=== PATIENT | male | born 1980 | race Caucasian/White ===

== ENCOUNTER 2019-08-25 11:30 | Inpatient (IN) | payer SELFPAY ==
[2019-08-25 13:26] LABS: Basophils % 0.3 % (0-1.3)
[2019-08-25] MEDS ORDERED: NA CHLORIDE 0.9% 1,000 ML ONE ×3 (13:26→18:56)
[2019-08-25] MEDS ORDERED: ONDANSETRON 4 MG/2 ML VIAL ONE ×2 (13:26→19:08)
[2019-08-25] MEDS ORDERED: MORPHINE 4 MG/ML SYR ONE ×3 (13:26→15:00)
[2019-08-25 13:31] LABS: Hematocrit 46.6 % (39.6-49.0); Lymphocytes % 6.3 % (15.3-44.8); MPV 9.8 fL (7.6-11.3); RBC Red Blood Cell Count 5.02 M/uL (4.33-5.43)
[2019-08-25 13:42] LABS: ALT/SGPT 23 U/L (12-78); AST/SGOT 16 U/L (15-37); Albumin 3.5 g/dL (3.4-5.0); Alkaline Phosphatase 81 U/L (45-117); BUN Blood Urea Nitrogen 13 mg/dL (7-18); Bicarbonate 25 mmol/L (21-32); Bilirubin Direct 0.1 mg/dL (0-0.2); Bilirubin Total 0.5 mg/dL (0.2-1.0); Glucose Level 191 mg/dL (74-106); Lipase 68 U/L (73-393); Sodium Level 141 mmol/L (136-145)
--- NOTE | 2019-08-25 14:20 | RAD REPORT ---
EXAM DESCRIPTION: CT - Abdomen Pelvis W Contrast - 08/25/2019 1:49 pm CLINICAL HISTORY: Abdominal pain COMPARISON: none. TECHNIQUE: Computed axial tomography of the abdomen pelvis was obtained. 100 cc Isovue-300 was admin istered intravenously. Oral contrast was not requested which limits evaluation of bowel. All CT scans are performed using dose optimization technique as appropriate and may include automated exposure control or mA/KV adjustment according to patient size. FINDINGS: The liver, spleen, pancreas, adrenal and kidneys appear unremarkable. Diverticula stem from the colon. There is moderate stranding adjacent to the sigmoid colon. In additi on there is an extraluminal air bubble. The appendix is thickened. Small amount of ill-defined fluid surrounds the appendix. A loop of small bowel is thickened within the anterior upper pelvis near midline. Several extralumina l air bubbles are present Left hydrocele IMPRESSION: There are several abnormal findings. The appendix is thickened with small amount of surrounding ill-defined fluid presumably appendicitis Sigmoid diverticulosis. Moderate stranding within the adjacent fat and an extraluminal air bubble lik pilar indicate diverticulitis with a micro perforation Thickening of the wall of a loop of small bowel within the anterior upper pelvis with a couple of adj acent extraluminal air bubbles indicate inflammation. The air bubbles may be the sequela of the suspe cted sigmoid micro perforation. Another consideration is that the microperforation is secondary to th e inflamed small bowel loop
[2019-08-25] MEDS ORDERED: PIPER/TAZO/NS 3.375gm 3.375 GM/100 ML BAG ONE (14:48)
--- NOTE | 2019-08-25 14:49 | ER ---
Nurse's Notes [facility] Name: Ravi Quintero Age: 39 yrs Sex: Male : 1980 Arrival Date: 08/25/2019 Time: 11:31 Bed 3 Private MD: Diagnosis: Elevated white blood cell count;Generalized abdominal pain Presentation: 08/24 11:37 Chief complaint: Patient states: umbilical pain that started today while on the toilet. sv Reports that he had 2 BMs today. Denies n/v. Coronavirus screen: Proceed with normal triage. Patient denies a cough. Patient reports shortness of breath or difficulty breathing. Patient denies measured and/or subjective temperature greater than 100.4F prior to today's visit. Patient denies travel on a cruise ship or to a country the [facility] currently lists as an affected area. Patient denies contact with known and/or suspected case of COVID-19. Ebola Screen: No symptoms or risks identified at this time. Risk Assessment: Do you want to hurt yourself or someone else? Patient reports no desire to harm self or others. Onset of symptoms was August 25, 2019. 11:37 Method Of Arrival: Wheelchair 11:37 Acuity: STACIE 3 sv 11:39 Initial Sepsis Screen: Does the patient meet any 2 criteria? RR > 20 per min. No. sv Patient's initial sepsis screen is negative. Does the patient have a suspected source of infection? Yes: Acute abdominal pain. Triage Assessment: 11:39 General: Appears in no apparent distress. uncomfortable, Behavior is cooperative, sv appropriate for age, restless. Pain: Complains of pain in umbilical area. Neuro: Level of Consciousness is awake, alert, obeys commands, Oriented to person, place, time, situation, Moves all extremities. Full function. Respiratory: Respiratory effort is even, unlabored. GI:. Historical: - Allergies: 11:38 No Known Allergies; sv - PMHx: 11:38 None; sv - PSHx: 11:38 None; sv - Immunization history:: Adult Immunizations up to date. - Social history:: Smoking status: Patient reports the use of cigarette tobacco products, smokes one pack cigarettes per day. Screenin:10 Abuse screen: Denies threats or abuse. Nutritional screening: No deficits noted. em Tuberculosis screening: No symptoms or risk factors identified. Fall Risk None identified. Assessment: 14:45 Reassessment: reports pain is a 6/10, restless and moaning, provider notified, received em new pain medication orders. Vital Signs: 11:39 BP 109 / 73; Pulse 68; Resp 22; Temp 97; Pulse Ox 100% ; Weight 113.4 kg; Height 6 ft. sv 0 in. (182.88 cm); 14:00 BP 150 / 103; Pulse 91; Resp 18; Pulse Ox 100% on R/A; Pain 8/10; em 11:39 Body Mass Index 33.91 (113.40 kg, 182.88 cm) sv ED Course: 11:31 Patient arrived in ED. ag5 11:38 Triage completed. sv 11:38 Arm band placed on. sv 13:03 Terrance Scott, RN is Primary Nurse. em 13:03 Ladan Gray FNP-C is PHCP. kb 13:03 Avelino Taylor MD is Attending Physician. kb 13:10 Patient has correct armband on for positive identification. Placed in gown. Bed in low em position. Call light in reach. Pulse ox on. NIBP on. 13:10 Initial lab(s) drawn, by me, sent to lab. Inserted saline lock: 20 gauge in right em antecubital area, using aseptic technique. Blood collected. 13:49 CT Abd/Pelvis - IV Contrast Only In Process Unspecified. EDMS 14:48 Ed Ambrocio MD is Hospitalizing Provider. kb 15:06 No provider procedures requiring assistance completed. Patient admitted, IV remains in em place. Administered Medications: 13:20 Drug: Zofran (Ondansetron) 4 mg Route: IVP; Site: right antecubital; em 14:00 Follow up: Response: No adverse reaction em 13:20 Drug: NS 0.9% 1000 ml Route: IV; Rate: 1000 ml; Site: right antecubital; em 15:01 Follow up: IV Status: Infusion continued upon admission em 13:22 Drug: morphine 4 mg Route: IVP; Site: right antecubital; em 14:10 Drug: morphine 4 mg Route: IVP; Site: left antecubital; em 14:50 Drug: Zosyn 3.375 grams Route: IVPB; Infused Over: 60 mins; Site: left antecubital; em 15:09 Follow up: IV Status: Infusion continued upon admission em 14:50 Drug: NS 0.9% 1000 ml Route: IV; Rate: 125 ml/hr; Site: left antecubital; em 15:09 Follow up: IV Status: Infusion continued upon admission em 14:55 Drug: morphine 4 mg Route: IVP; Site: right antecubital; em Outcome: 14:48 Decision to Hospitalize by Provider. kb 15:06 Admitted to OR accompanied by nurse, via wheelchair, with chart, Report called to Yoan 15:06 Condition: good 15:06 Instructed on the need for admit, Demonstrated understanding of instructions. 15:10 Patient left the ED. em Signatures: Dispatcher [employer] Ladan Allen, Shelby Bermudez, RN Terrance Gould RN RN Paxton Packer ag5
--- NOTE | 2019-08-25 14:49 | EDPHYS ---
Physician Documentation [facility] Name: Ravi Quintero Age: 39 yrs Sex: Male : 1980 Arrival Date: 08/25/2019 Time: 11:31 Bed 3 Private MD: ED Physician Avelino Taylor HPI: 08/24 14:33 This 39 yrs old Male presents to ER via Wheelchair with complaints of kb Abdominal Pain. 14:33 The patient presents with abdominal pain that is diffuse. Onset: The symptoms/episode kb began/occurred this morning, at 09:40. The symptoms do not radiate. Associated signs and symptoms: none. 14:34 The symptoms are described as constant, sharp. Modifying factors: The symptoms are kb alleviated by nothing, the symptoms are aggravated by pressure. Severity of pain: At its worst the pain was severe in the emergency department the pain is unchanged. The patient has not experienced similar symptoms in the past. The patient has not recently seen a physician. Pt reports he was having a BM at 0940 and had sudden, severe, diffuse abd pain. Denies n/v/d, fever, chills. . Historical: - Allergies: 11:38 No Known Allergies; sv - PMHx: 11:38 None; sv - PSHx: 11:38 None; sv - Immunization history:: Adult Immunizations up to date. - Social history:: Smoking status: Patient reports the use of cigarette tobacco products, smokes one pack cigarettes per day. ROS: 14:54 Constitutional: Negative for fever, chills, and weight loss, Cardiovascular: Negative kb for chest pain, palpitations, and edema, Respiratory: Negative for shortness of breath, cough, wheezing, and pleuritic chest pain, Back: Negative for injury and pain, : Negative for injury, bleeding, discharge, and swelling, MS/Extremity: Negative for injury and deformity, Skin: Negative for injury, rash, and discoloration, Neuro: Negative for headache, weakness, numbness, tingling, and seizure. 14:54 Abdomen/GI: Positive for abdominal pain, Negative for nausea, vomiting, and diarrhea. Exam: 14:54 Chest/axilla: Normal chest wall appearance and motion. Nontender with no deformity. kb No lesions are appreciated. Cardiovascular: Regular rate and rhythm with a normal S1 and S2. No gallops, murmurs, or rubs. Normal PMI, no JVD. No pulse deficits. Respiratory: Lungs have equal breath sounds bilaterally, clear to auscultation and percussion. No rales, rhonchi or wheezes noted. No increased work of breathing, no retractions or nasal flaring. Back: No spinal tenderness. No costovertebral tenderness. Full range of motion. Skin: Warm, dry with normal turgor. Normal color with no rashes, no lesions, and no evidence of cellulitis. MS/ Extremity: Pulses equal, no cyanosis. Neurovascular intact. Full, normal range of motion. Neuro: Awake and alert, GCS 15, oriented to person, place, time, and situation. Cranial nerves II-XII grossly intact. Motor strength 5/5 in all extremities. Sensory grossly intact. Cerebellar exam normal. Normal gait. 14:54 Constitutional: The patient appears alert, awake, in obvious pain. 14:54 Abdomen/GI: Inspection: abdomen appears normal, Bowel sounds: normal, in all quadrants, Palpation: severe abdominal tenderness, in all quadrants, rigid abd. Vital Signs: 11:39 BP 109 / 73; Pulse 68; Resp 22; Temp 97; Pulse Ox 100% ; Weight 113.4 kg; Height 6 ft. sv 0 in. (182.88 cm); 14:00 BP 150 / 103; Pulse 91; Resp 18; Pulse Ox 100% on R/A; Pain 8/10; em 11:39 Body Mass Index 33.91 (113.40 kg, 182.88 cm) sv MDM: 13:04 Patient medically screened. kb 14:32 Data reviewed: vital signs, nurses notes. Data interpreted: Pulse oximetry: on room air kb is 100 %. Interpretation: normal. 14:42 Counseling: I had a detailed discussion with the patient and/or guardian regarding: the kb historical points, exam findings, and any diagnostic results supporting the discharge/admit diagnosis, lab results, radiology results, the need for further work-up and treatment in the hospital. Physician consultation: Ed Ambrocio MD was contacted at 14:42, regarding admission, to the medical/surgical unit. patient's condition, and will see patient in OR. 08/24 13:05 Order name: Basic Metabolic Panel; Complete Time: 13:44 kb 08/24 13:05 Order name: CBC with Diff; Complete Time: 15:00 kb 08/24 13:05 Order name: Hepatic Function; Complete Time: 13:44 kb 08/24 13:05 Order name: Lipase; Complete Time: 13:44 kb 08/24 13:36 Order name: Manual Differential; Complete Time: 15:00 EDMS 08/24 13:59 Order name: Lactate kb 08/24 13:14 Order name: CT Abd/Pelvis - IV Contrast Only; Complete Time: 14:21 kb 08/24 14:13 Order name: CREATININE WHOLE BLOOD; Complete Time: 14:14 EDMS 08/24 14:28 Order name: Blood Culture Adult (2) kb 08/24 14:28 Order name: Procalcitonin kb 08/24 13:05 Order name: IV Saline Lock; Complete Time: 13:13 kb 08/24 13:05 Order name: Labs collected and sent; Complete Time: 13:12 kb 08/24 14:28 Order name: NPO; Complete Time: 15:01 kb Administered Medications: 13:20 Drug: Zofran (Ondansetron) 4 mg Route: IVP; Site: right antecubital; em 14:00 Follow up: Response: No adverse reaction em 13:20 Drug: NS 0.9% 1000 ml Route: IV; Rate: 1000 ml; Site: right antecubital; em 15:01 Follow up: IV Status: Infusion continued upon admission em 13:22 Drug: morphine 4 mg Route: IVP; Site: right antecubital; em 14:10 Drug: morphine 4 mg Route: IVP; Site: left antecubital; em 14:50 Drug: Zosyn 3.375 grams Route: IVPB; Infused Over: 60 mins; Site: left antecubital; em 15:09 Follow up: IV Status: Infusion continued upon admission em 14:50 Drug: NS 0.9% 1000 ml Route: IV; Rate: 125 ml/hr; Site: left antecubital; em 15:09 Follow up: IV Status: Infusion continued upon admission em 14:55 Drug: morphine 4 mg Route: IVP; Site: right antecubital; em Disposition: 08/25/19 14:48 Hospitalization ordered by Ed Ambrocio for Inpatient Admission. Preliminary diagnosis are Elevated white blood cell count, Generalized abdominal pain. - Bed requested for Telemetry/MedSurg (Inpatient). - Status is Inpatient Admission. em - Condition is Fair. - Problem is new. - Symptoms are unchanged. Signatures: Dispatcher [employer] Ladan Allen, SULLY LEMONS-Shelby Orantes, RN RN Terrance Scott RN RN em Corrections: (The following items were deleted from the chart) 15:10 14:48 Hospitalization Ordered by Ed Ambrocio MD for Inpatient Admission. Preliminary em diagnosis is Elevated white blood cell count; Generalized abdominal pain. Bed requested for Telemetry/MedSurg (Inpatient). Status is Inpatient Admission. Condition is Fair. Problem is new. Symptoms are unchanged. kb
[2019-08-25 14:57] LABS: Blood Morphology Comment NOT SEEN (NOT SEEN); Platelet Estimate ADEQ
--- NOTE | 2019-08-25 15:59 | P.CNS ---
Date of Consult: 08/25/19 Reason for Consult: Medical management Requesting Physician: Ed Ambrocio Chief Complaint: Acute abdomen History of Present Illness: 39-year-old male with no known medical history presented the emergency department for severe abdominal pain. Patient states that he was having a bowel movement at approximately 9:00 a.m. this morning and had a sudden severe onset pain and could barely stand up. The patient later presented to the emergency department with severe abdominal pain and was evaluated. During his evaluation in the emergency department patient was found to have an acute abdomen with a white blood cell count of [address] showing possible acute appendicitis and diverticulitis with microperforation. General surgery was immediately consulted while patient was in the emergency department and was taken for emergent surgery. Patient is going to have an exploratory laparotomy with General Surgery. After ex lap patient will be admitted, admission hospitalist service will help manage patient medically. When I saw patient in PACU he is very uncomfortable, grunting and running. Patient is being prepared for surgery. Patient be admitted after surgery for further management. Home medications list reviewed: Yes - Past Medical/Surgical History Diabetic: No -: none -: none Psychosocial/ Personal History: Patient lives at home. - Social History Smoking Status: Current every day smoker Alcohol use: Yes CD- Drugs: No Caffeine use: Yes Place of Residence: Home <Otis Leigh - Last Filed: 08/25/19 15:50> - Family History Father Family History: Reviewed- Non-Contributory <Dejuan Matamoros - Last Filed: 08/25/19 18:36> Review of Systems General: Unremarkable Eyes: Unremarkable ENT: Unremarkable Respiratory: Unremarkable Cardiovascular: Unremarkable Gastrointestinal: Nausea, Abdominal Pain, As per HPI Genitourinary: Unremarkable Musculoskeletal: Unremarkable Integumentary: Unremarkable Neurological: Unremarkable <Otis Leigh - Last Filed: 08/25/19 15:50> Physical Examination Temp Pulse Resp BP Pulse Ox 97 F 91 H 18 150/103 H 08/25/19 11:39 08/25/19 14:00 08/25/19 14:00 08/25/19 14:00 General: Alert, Oriented x3, Moderate distress HEENT: Atraumatic, Normocephalic Neck: Supple Respiratory: Clear to auscultation bilaterally, Normal air movement Cardiovascular: No edema, Normal pulses, Regular rate/rhythm, Normal S1 S2 Capillary refill: <2 Seconds Gastrointestinal: Hypoactive, Tenderness, Rebound, Guarding Musculoskeletal: No contractures, No erythema, No tenderness Integumentary: No tenderness/swelling, No erythema, No warmth Neurological: Normal speech, Normal strength at 5/5 x4 extr, Normal tone, Sensation intact Laboratory Data (last 24 hrs) 08/25/19 13:10: WBC 32.2 H*, Hgb 15.5, Hct 46.6, Plt Count 340 08/25/19 13:10: Sodium 141, Potassium 4.0, BUN 13, Creatinine 0.90, Glucose 191 H, Total Bilirubin 0.5, AST 16, ALT 23, Alkaline Phosphatase 81, Lipase 68 L <Otis Leigh - Last Filed: 08/25/19 15:50> Temp Pulse Resp BP Pulse Ox 98.5 F 109 H 21 H 152/85 H 08/25/19 18:25 08/25/19 18:25 08/25/19 18:25 08/25/19 18:25 Laboratory Data (last 24 hrs) 08/25/19 13:10: WBC 32.2 H*, Hgb 15.5, Hct 46.6, Plt Count 340 08/25/19 13:10: Sodium 141, Potassium 4.0, BUN 13, Creatinine 0.90, Glucose 191 H, Total Bilirubin 0.5, AST 16, ALT 23, Alkaline Phosphatase 81, Lipase 68 L <Dejuan Matamoros - Last Filed: 08/25/19 18:36> Conclusions/Impression: Assessment Acute abdomen, leukocytosis secondary to acute appendicitis/diverticulitis with microperforation Hyperglycemia not previously diagnosed with diabetes Tobacco abuse Plan Acute abdomen, leukocytosis secondary to acute appendicitis/diverticulitis with microperforation: General surgery was consulted while patient was in the emergency department. Patient was taken for emergency exploratory laparotomy. Patient will be admitted after certain further management. The patient be on broad-spectrum antibiotics currently with Zosyn. Will allow general surgery to further manage patient's own dentition in regards to antibiotic choice, pain medication, diet. Appreciate further input from general surgery. Will hold off on DVT prophylaxis at this time. Hyperglycemia not previously diagnosed with diabetes: Will obtain A1c level with morning labs. Tobacco abuse: Counseled patient on need for tobacco cessation. Will provide patient with nicotine patch. Critical Care: No Time Spent Managing Pts care (In Minutes): 45 <Otis Leigh - Last Filed: 08/25/19 15:50> Conclusions/Impression: Case discussed in detail with nurse practitioner. Agree with evaluation, assessment and plan of care. Will discuss further with surgery tomorrow. Anticipate improvement over the next 24-48 hr. Await finding from surgery. <Dejuan Matamoros - Last Filed: 08/25/19 18:36>
[2019-08-25] MEDS ORDERED: SUCCINYLCHOLINE 20 MG/ML (10 ML) IV ONE (16:06)
[2019-08-25] MEDS ORDERED: propofoL 200 MG/20 ML VIAL IV ONE (16:09)
[2019-08-25] MEDS ORDERED: ROCURONIUM 50 MG/5 ML VIAL IV ONE ×2 (16:09→16:39)
[2019-08-25] MEDS ORDERED: MIDAZOLAM HCL 2 MG/2 ML INJ ONE (16:09)
[2019-08-25] MEDS ORDERED: FENTANYL CITR 250 MCG/5 ML ONE ×2 (16:09→17:01)
--- NOTE | 2019-08-25 17:05 | PREOPHP ---
Date of Admission: 08/25/2019 Reason: Abdominal pain. History Of Present Illness: Patient is a 39-year-old gentleman who awoke this morning at 9:30 with a cute onset of diffuse abdominal pain, starting in the lower abdomen started on lower abdomen on the l eft side. Denies any nausea vomiting, diarrhea, constipation. No blood in his stool. No dysuria or hematuria. No sore throat, runny nose, cough, headaches, or dizziness. No chest pain. No fever or chills. Patient never had similar episodes in the past. Never had a colonoscopy. Review of Systems: Otherwise unremarkable. Past Medical History: Questionable history of high blood pressure. Past Surgical History: Negative. Allergies: NO ALLERGY. Social History: Patient does smoke half-a-pack, drinks occasionally. Family History: Significant for diabetes in the mother. Physical Examination: Vital Signs: Currently stable. Blood pressure is slightly high and he is afebrile. General: He is awake, alert, and oriented x3. Head and Neck: Cranial nerves 2 through 12 grossly within normal limits. No neck masses. No JVD. Throat clear. Neck is supple. Chest: Clear. Heart: S1, S2. GASTROINTESTINAL: Abdomen is soft, diffusely tender. Hypoactive bowel sounds. Rebound tenderness, d iffusely guarding in the lower abdomen, left greater than right. Extremities: Adequately perfused. Nontender. Neuro: Nonfocal. Laboratory Data: White count is 32,200 with a left shift. Chemistry reviewed. CT of the abdomen an d pelvis reviewed with the radiologist, essentially it shows appendix, it is thickened with small alexis unt of surrounding, ill-defined fluid, presumably appendicitis, sigmoid diverticulosis, moderate stra nding within the adjacent fat, and an extraluminal air bubble likely indicating diverticulitis with m icroperforation. Thickening of the wall of loop of small bowel within anterior upper pelvis with a c ouple of adjacent extraluminal air bubbles indicate inflammation. The air bubbles may be the sequela of the suspected perforation secondary to the inflamed small bowel loop. Assessment: A 39-year-old gentleman with perforated sigmoid colon diverticulitis with peritonitis. Recommendations: Admitted, n.p.o., IV fluid, IV antibiotics. To the OR for exploratory laparotomy, likely Juli's procedure and appendectomy. Patient understands the risks, benefits, and alternati ves and agrees to procedure. SUSAN/SUSANNE Voice ID: [id number]
[2019-08-25] MEDS ORDERED: GLYCOPYRROLATE 0.2 MG/ML SYR ONE (17:54)
[2019-08-25] MEDS ORDERED: NEOSTIGMINE 1 MG/ML -5 ML ONE (17:54)
--- NOTE | 2019-08-25 17:58 | P.OP ---
Lacrosse Player: Ugo NGUYEN Preoperative diagnosis: Perforated Sigmoid Diverticulitis and Peritonitis Postoperative diagnosis: same Primary procedure: Exp Lap, Tan's Procedure, Appendectomy Anesthesia: General Estimated blood loss: min Specimen: Sigmoid Colon, C&S Findings: as above Complications: None Drain(s): Nasogastric, Urinary catheter Transferred to: Recovery Room Condition: Good
[2019-08-25] MEDS ORDERED: Mastisol Adhesive Liq ONE (17:59)
[2019-08-25] MEDS ORDERED: PIPER/TAZO/NS 3.375gm 3.375 GM/100 ML BAG IVPB SCH (18:00)
[2019-08-25] MEDS ORDERED: ONDANSETRON 4 MG/2 ML VIAL IV PRN (18:00)
[2019-08-25] MEDS ORDERED: NICOTINE 21 MG/PAT TD PRN (18:00)
[2019-08-25] MEDS: HYDROMORPHONE HCL 1 MG/ML INJ ONE ×3 (18:55→19:05)
[2019-08-25] MEDS ORDERED: KETOROLAC 30 MG/ML INJ ONE (19:09)
[2019-08-25] MEDS: NA CHLORIDE 0.9% 1,000 ML IV SCH (19:30)
--- NOTE | 2019-08-25 20:22 | OP ---
Date of Procedure: 08/25/2019 Surgeon: Ed Ambrocio MD Oncology Patient Navigator: PATRICK Westbrook. Preoperative Diagnosis: Perforated sigmoid diverticulitis and peritonitis. Postoperative Diagnosis: Perforated sigmoid diverticulitis and peritonitis. Procedure Performed: Exploratory laparotomy, Juli's procedure, and appendectomy. Estimated Blood Loss: Minimal. Specimen: Culture and sensitivity of the pus in the abdomen and sigmoid colon and appendix. Findings: As above. Anesthesia: General. Complications: None. Disposition: Patient tolerated the procedure in stable condition, taken to Recovery in good general condition. Procedure In Detail: Patient was brought to the OR, placed in supine position. General anesthesia b egun. Patient was prepped and draped in the usual sterile fashion. Then 20 blade was used to make a generous midline incision from just below the umbilicus towards the pubis. Subcutaneous tissue divi ded. Fascia was identified and divided. Peritoneal cavity was entered with sharp and blunt dissecti on. Bleeding controlled with cautery and then pus was encountered throughout the abdomen, which was aspirated. There was moderate amount of pus throughout the belly. Entire abdomen was irrigated. The source was identified as the sigmoid colon, it was indurated. There could be seen a diverticulum th at was leaking pus and stool, this was controlled and then exploratory laparotomy took place. The ap pendix was retrocecal, it was secondarily inflamed and it was removed with Endo-JOCELYN stapling device a nd 2-0 silk was tied. The mesoappendix, GE junction, duodenal sweep, small bowel were all within nor mal limits. Stomach was within normal limits. Liver, gallbladder were within normal limits. Right side of the colon, ascending colon, transverse colon, descending colon, were within normal limits. T he proximal sigmoid colon was obviously inflamed, indurated, and the area of perforation was easily v isualized. Rectum was within normal limits. No other evidence of disease identified. Subsequently after the appendix was removed, then proximally a JOCELYN stapling device was used to divide the proximal sigmoid colon and then the distal to the diseased area a contour stapling device was used to divide that and LigaSure was used to divide the mesocolon and the specimen was removed and sent to Pathology as well as the appendix in the culture and sensitivity. Then the descending colon was mobilized to allow for a tension-free colostomy. LigaSure was utilized as needed and then a 3 cm incision was mad e on the left middle quadrant. Subcutaneous tissue was divided. Fat was excised down to the fascia. Lanny-cross incision was made in the fascia and peritoneal cavity was entered and the colostomy was pulled through and then it had adequate circulation. After the abdomen was thoroughly irrigated, al l counts were correct. Effluent was clear, no evidence of bleeding or bowel injury was appreciated. Then #2 nylon was used to close the midline fascia. Subcutaneous wounds were irrigated. Bleeding c ontrolled with cautery. Clau used to close the skin and then the colostomy was matured with 3-0 c hromic in the usual standard fashion and then colostomy bag was placed. The patient was awakened, ta dayanara to Recovery in good general condition. /MODL Voice ID: [id number] Report ID: [id number]
[2019-08-25] MEDS: NA CHLORIDE 0.9% 500 ML IV PRN (20:33)
[2019-08-25] MEDS ORDERED: NA CHLORIDE 0.9% 100 ML ONE (23:30)
[2019-08-25] MEDS ORDERED: PIPERACIL/TAZO 3.375 GM VIAL IV ONE (23:30)
[2019-08-25] MEDS: PIPER/TAZO/NS 3.375gm 3.375 GM/100 ML BAG IVPB SCH (23:51)
[2019-08-26] MEDS: NA CHLORIDE 0.9% 1,000 ML IV SCH ×3 (00:51→17:28)
[2019-08-26] MEDS: NA CHLORIDE 0.9% 500 ML IV PRN (00:51)
[2019-08-26] MEDS: HYDROMORPHONE HCL 1 MG/ML INJ IV PRN ×8 (00:52→20:57)
[2019-08-26] MEDS ORDERED: PIPER/TAZO/NS 3.375gm 3.375 GM/100 ML BAG IVPB SCH ×3 (01:00→09:00)
[2019-08-26] MEDS ORDERED: NA CHLORIDE 0.9% 100 ML ONE (05:37)
[2019-08-26] MEDS ORDERED: PIPERACIL/TAZO 3.375 GM VIAL IV ONE (05:37)
[2019-08-26] MEDS: PIPER/TAZO/NS 3.375gm 3.375 GM/100 ML BAG IVPB SCH ×3 (06:15→22:47)
[2019-08-26 06:25] LABS: BUN Blood Urea Nitrogen 15 mg/dL (7-18); Bicarbonate 24 mmol/L (21-32); Glucose Level 150 mg/dL (74-106); Magnesium 1.6 mg/dL (1.8-2.4); Phosphorus 2.7 mg/dL (2.5-4.9); Potassium 3.9 mmol/L (3.5-5.1); Sodium Level 144 mmol/L (136-145)
[2019-08-26 06:48] LABS: Absolute Lymphocytes (CBC) 2.3 K/uL (0.7-4.9); Basophils % 0.2 % (0-1.3); Hematocrit 39.2 % (39.6-49.0); Lymphocytes % 9.8 % (15.3-44.8); MPV 10.3 fL (7.6-11.3); RBC Red Blood Cell Count 4.19 M/uL (4.33-5.43)
[2019-08-26] MEDS: ONDANSETRON 4 MG/2 ML VIAL IV PRN (08:50)
[2019-08-26] MEDS: PANTOPRAZOLE 40 MG INJ IVP SCH (08:50)
[2019-08-26] MEDS: ENOXAPARIN 40 MG/0.4 ML SQ SCH (08:50)
[2019-08-26] MEDS: SODIUM CHLORIDE 0.9% 10ML INJ IV PRN (08:51)
--- NOTE | 2019-08-26 12:50 | PN ---
Date of Progress Note: 08/26/2019 Subjective: The patient is awake, alert, feels better. Pain is controlled. No nausea or vomiting. Objective: Vital Signs: Stable. He is afebrile. Abdomen: Soft. Hypoactive bowel sounds. Dressing is clean, dry, intact. The colostomy shows a pin k edematous mucosa. His urine output is marginal last night using a couple of fluid boluses. This morning is adequate. Laboratory Data: Reviewed. White count is down to 23.6, there is a left shift. Chemistry reviewed. Electrolytes are being checked and replaced as needed. Assessment: Status post Juli procedure and appendectomy for perforated sigmoid diverticulitis. Recommendations: Continue n.p.o., NG tube, IV fluid, IV antibiotics, fluid boluses as needed. Monit or in the ICU for another 24 hours. He can be transferred to the floor. Encouraged incentive spirom etry and ambulation. Patient is clinically stable, doing better. /MODL Voice ID: [id number] Report ID: [id number]
[2019-08-26] MEDS ORDERED: NA CHLORIDE 0.9% 500 ML IV PRN (18:55)
--- NOTE | 2019-08-26 21:25 | RAD REPORT ---
EXAM DESCRIPTION: RAD - Chest Single View - 08/26/2019 9:16 pm CLINICAL HISTORY: Vascular congestion TECHNIQUE: AP portable chest image was obtained 08/26/2019 9:16 pm . FINDINGS: Lung volumes are low. Right hemidiaphragm elevation is present. Right base atelectasis is present. There are patchy opacities present in the lower left lung field exaggerated by motion. Heart size and vasculature within normal limits for exam limitations. NG tube is in place extending into t he stomach. No measurable pleural effusion and no pneumothorax. No acute bony abnormality seen. No ac terry aortic findings suspected. IMPRESSION: Limited examination showing right base atelectasis and patchy left base opacification ac centuated by motion. Mild or early left lung base pneumonia is suspected.
--- NOTE | 2019-08-26 23:30 | P.PN ---
Date of Service: 08/26/19 Patient noted to desaturate to 88. Noted shallow breathing. Pain level 8/10. Chest x-ray demonstrated low lung volumes. No vascular congestion. Possible early left lower lobe pneumonia. I suspect hypoxemia secondary to pain related hypoventilation. Plan: Titrate IV hydromorphone for pain control. Incentive spirometry Continue current antibiotic.
[2019-08-27] MEDS: HYDROMORPHONE HCL 2 MG/ML inj IV PRN ×9 (01:11→23:40)
[2019-08-27] MEDS ORDERED: MAGNESIUM SULFATE 1 gm IVPB 1 GM/100 ML BAG IV ONE (02:00)
[2019-08-27] MEDS: NA CHLORIDE 0.9% 1,000 ML IV SCH ×4 (02:20→17:57)
[2019-08-27] MEDS: ALBUTEROL 2.5 MG/3 ML NEB SOL NEB SCH ×2 (02:40→03:30)
[2019-08-27] MEDS ORDERED: ALBUTEROL 2.5 MG/3 ML NEB SOL NEB PRN (03:30)
[2019-08-27] MEDS: PIPER/TAZO/NS 3.375gm 3.375 GM/100 ML BAG IVPB SCH ×3 (05:32→21:08)
[2019-08-27 05:40] LABS: BUN Blood Urea Nitrogen 10 mg/dL (7-18); Bicarbonate 25 mmol/L (21-32); Glucose Level 128 mg/dL (74-106); Magnesium 2.1 mg/dL (1.8-2.4); Phosphorus 1.7 mg/dL (2.5-4.9); Potassium 3.9 mmol/L (3.5-5.1); Sodium Level 142 mmol/L (136-145)
[2019-08-27 05:56] LABS: Absolute Lymphocytes (CBC) 1.9 K/uL (0.7-4.9); Basophils % 0.2 % (0-1.3); Hematocrit 37.3 % (39.6-49.0); MPV 9.8 fL (7.6-11.3); RBC Red Blood Cell Count 3.96 M/uL (4.33-5.43)
[2019-08-27] MEDS ORDERED: POTASSIUM PHOS IN 0.9 % NACL 15 MMOL/250 ML BAG IV ONE (08:00)
[2019-08-27] MEDS ORDERED: ALBUTEROL INHALER 60 PUFF/8 GM IH PRN (08:04)
[2019-08-27] MEDS: ENOXAPARIN 40 MG/0.4 ML SQ SCH (08:45)
[2019-08-27] MEDS: SODIUM CHLORIDE 0.9% 10ML INJ IV PRN (08:47)
[2019-08-27] MEDS: PANTOPRAZOLE 40 MG INJ IVP SCH (08:47)
[2019-08-27] MEDS: DULERA 100/5 (MOMETASONE/FORMOTEROL) INHALER IH SCH ×2 (08:48→21:08)
[2019-08-27 09:31] LABS: Urine White Blood Cell Casts OK
[2019-08-27 09:32] LABS: Blood Morphology Comment NOT SEEN (NOT SEEN); Platelet Estimate ADEQ
--- NOTE | 2019-08-27 09:53 | P.CNS ---
Date of Consult: 08/27/19 Chief Complaint: Hypoxemia History of Present Illness: Patient is 39 years of age presented to the emergency room with acute abdomen patient is status post surgery developed hypoxemia yesterday patient is a heavy smoker Allergies No Known Allergies Allergy (Verified 08/25/19 22:08) Home Medications: NK [No Home Meds] 08/25/19 - Past Medical/Surgical History Diabetic: No -: none -: none Psychosocial/ Personal History: Patient lives at home. - Family History Father Medical History: Heart disease Family History: Reviewed- Non-Contributory Mother Medical History: Hypertension, Diabetes, Cancer - Social History Smoking Status: Current every day smoker Alcohol use: No CD- Drugs: Yes Caffeine use: Yes Place of Residence: Home Review of Systems General: Weakness Respiratory: Shortness of Breath Physical Examination Temp Pulse Resp BP Pulse Ox 98.7 F 92 H 29 H 132/80 90 L 08/27/19 04:00 08/27/19 07:00 08/27/19 09:17 08/27/19 07:00 08/27/19 09:17 General: Alert, Oriented x3, Moderate distress - Problems (1) Hypoxemia Current Visit: Yes Status: Acute Plan: Patient is 39 years of age admitted with perforated bowel is status post surgery developed some hypoxemia patient is an active smoker change him over to high- flow oxygen he is a little tachypneic continue with inhalers patient's white count is elevated patient is on Zosyn chest x-rays abnormal possible right-sided atelectasis/effusion
--- NOTE | 2019-08-27 11:02 | P.PN ---
Subjective Date of Service: 08/27/19 Chief Complaint: Hypoxemia Subjective: Improving Physical Examination - Vital Signs Temperature: 99.1 F Blood Pressure: 127/80 Pulse: 92 Respirations: 29 Pulse Ox (%): 90 - Physical Exam General: Alert, Cooperative HEENT: Atraumatic Neck: Supple Respiratory: Clear to auscultation bilaterally Cardiovascular: Normal pulses, Regular rate/rhythm Gastrointestinal: Other (Postoperative changes noted) Integumentary: No erythema, No warmth, No cyanosis Neurological: Normal speech, Normal strength at 5/5 x4 extr, Normal tone, Normal affect - Studies Medications List Reviewed: Yes Assessment & Plan Discharge Plan: Home Plan to discharge in: Greater than 2 days Physician Review Additional Text: Assessment Acute abdomen, leukocytosis secondary to perforated sigmoid diverticulitis and peritonitis status post exploratory laparotomy, Juli's procedure and appendectomy , peritoneal culture positive for E coli Hypoxia likely related to right base atelectasis and possible early left base pneumonia with underlying COPD Hyperglycemia, pre diabetes Tobacco abuse Plan Acute abdomen, leukocytosis secondary to perforated sigmoid diverticulitis and peritonitis status post exploratory laparotomy, Juli's procedure and appendectomy, peritoneal culture positive for E coli: Patient stable this time. Continue to ambulate. Patient still with NG tube. Patient currently NPO. Continue IV antibiotic therapy. Encourage incentive spirometer. Continue IV fluids. Pulmonology consulted to address hypoxia. Suspect early base pneumonia with underlying COPD and right-sided atelectasis. Peritoneal culture positive for E coli, Continue IV Zosyn. Will provide Dulera and ProAir. Wean off oxygen. Anticipate improvement over the next several days. Hypoxia likely related to right base atelectasis and possible early left base pneumonia with underlying COPD: Pulmonology consulted. Spoke with pulmonology. Continue IV Zosyn. Continue to wean off oxygen. Sputum culture obtained. Encourage incentive spirometer. Dulera and ProAir added. Hyperglycemia,pre diabetes: Hemoglobin A1c 6.3. Will monitor blood sugar closely. Recommend recheck A1c in 3 months to monitor his progress. Will provide education on diabetes/pre diabetes. Tobacco abuse: Counseled patient on need for tobacco cessation. Will provide patient with nicotine patch. Time Spent Managing Pts Care (In Minutes): 55
--- NOTE | 2019-08-27 15:57 | PN ---
Date of Progress Note: 08/27/2019 Subjective: Patient is awake and alert. Last night, he had an episode of desaturation. Chest x-ray was done. There was some question whether patient has pneumonia. Since he had a breathing treatmen t, he feels much better. He is using his incentive spirometry. His vitals are stable. He is afebri le. Laboratory Data: White count is still elevated at 21,000, but is down from yesterday, denies a left shift. Electrolytes noted. His NG tube has put out 180 mL. He has not had air or stool from his colostomy. His urine output palma s been more than adequate. Abdomen is soft. Hypoactive bowel sounds. Colostomy is pink and edemato us. Assessment: Status post Juli procedure and appendectomy for perforated sigmoid diverticulitis. Recommendations: Continue n.p.o., NG tube, IV fluids, IV antibiotics. We will discontinue the Florse today. Breathing treatments as ordered. Incentive spirometry. Ambulation. Clinically stable from respiratory standpoint. Later on today, he can be transferred to the regular room. /MODL Voice ID: [id number] Report ID: [id number]
[2019-08-28] MEDS: NA CHLORIDE 0.9% 1,000 ML IV SCH ×4 (02:00→17:25)
[2019-08-28] MEDS: HYDROMORPHONE HCL 2 MG/ML inj IV PRN ×2 (03:00→06:48)
[2019-08-28 05:20] LABS: Absolute Lymphocytes (CBC) 1.7 K/uL (0.7-4.9); Basophils % 0.5 % (0-1.3); Hematocrit 34.5 % (39.6-49.0); Lymphocytes % 8.7 % (15.3-44.8); MPV 9.3 fL (7.6-11.3)
[2019-08-28 05:34] LABS: BUN Blood Urea Nitrogen 12 mg/dL (7-18); Bicarbonate 25 mmol/L (21-32); Glucose Level 119 mg/dL (74-106); Potassium 3.8 mmol/L (3.5-5.1); Sodium Level 143 mmol/L (136-145)
[2019-08-28] MEDS: PIPER/TAZO/NS 3.375gm 3.375 GM/100 ML BAG IVPB SCH ×3 (06:12→21:06)
[2019-08-28] MEDS ORDERED: POTASSIUM PHOS IN 0.9 % NACL 15 MMOL/250 ML BAG IV ONE (08:00)
[2019-08-28] MEDS: ENOXAPARIN 40 MG/0.4 ML SQ SCH (09:36)
[2019-08-28] MEDS: PANTOPRAZOLE 40 MG INJ IVP SCH (09:36)
[2019-08-28] MEDS: DULERA 100/5 (MOMETASONE/FORMOTEROL) INHALER IH SCH ×2 (09:37→21:00)
[2019-08-28] MEDS: HYDROMORPHONE HCL 1 MG/ML INJ IV PRN ×4 (10:16→21:07)
--- NOTE | 2019-08-28 10:28 | PN ---
Date of Progress Note: 08/28/2019 History: The patient is awake, alert, no complaints. Physical Examination: Vitals are stable. Afebrile. Laboratory Data: Reviewed. His white count is decreasing. He still has a left shift. Cultures fro m the OR grew out E coli sensitive to Zosyn. Abdomen is soft, nondistended. Positive bowel sounds. There is air in the colostomy bag. Assessment: Status post Juli's procedure and appendectomy for perforated sigmoid diverticulitis. Recommendations: We will DC the NG tube. Start patient on clear liquids. The patient's pulmonary s tatus is much better, he can be transferred to the floor. Incentive spirometry and DVT prophylaxis. /MODL Voice ID: [id number] Report ID: [id number]
--- NOTE | 2019-08-28 15:38 | P.PN ---
Subjective Date of Service: 08/28/19 Chief Complaint: Hypoxemia Subjective: Improving, Doing well Physical Examination - Vital Signs Temperature: 99.5 F Blood Pressure: 142/90 Pulse: 89 Respirations: 22 Pulse Ox (%): 95 - Physical Exam General: Alert, Cooperative HEENT: Atraumatic Neck: Supple Respiratory: Clear to auscultation bilaterally, Normal air movement Cardiovascular: Normal pulses, Regular rate/rhythm Gastrointestinal: Other (Post operative changes noted) Neurological: Normal speech, Normal strength at 5/5 x4 extr, Normal tone, Normal affect - Studies Medications List Reviewed: Yes Assessment & Plan Discharge Plan: Home Plan to discharge in: Greater than 2 days Physician Review Additional Text: Assessment Acute abdomen, leukocytosis secondary to perforated sigmoid diverticulitis and peritonitis status post exploratory laparotomy, Juli's procedure and appendectomy , peritoneal culture positive for E coli Hypoxia likely related to right base atelectasis and possible early left base pneumonia with underlying COPD Hyperglycemia, pre diabetes Tobacco abuse Plan Acute abdomen, leukocytosis secondary to perforated sigmoid diverticulitis and peritonitis status post exploratory laparotomy, Juli's procedure and appendectomy, peritoneal culture positive for E coli: Patient stable this time. Continue to ambulate. Patient still with NG tube. Patient currently NPO. Continue IV antibiotic therapy. Encourage incentive spirometer. Continue to wean off oxygen. Continue medication for COPD. Will discuss further with pulmonology and surgery. Anticipate improvement over the next several days. Hypoxia likely related to right base atelectasis and possible early left base pneumonia with underlying COPD: Continue current medication. Wean off oxygen. Encourage incentive spirometer. Hyperglycemia,pre diabetes: Hemoglobin A1c 6.3. Will monitor blood sugar closely. Recommend recheck A1c in 3 months to monitor his progress. Will provide education on diabetes/pre diabetes. Tobacco abuse: Counseled patient on need for tobacco cessation. Will provide patient with nicotine patch. Time Spent Managing Pts Care (In Minutes): 55
[2019-08-28] MEDS: ONDANSETRON 4 MG/2 ML VIAL IV PRN (21:07)
[2019-08-28] MEDS: SODIUM CHLORIDE 0.9% 10ML INJ IV PRN (21:07)
[2019-08-29] MEDS: HYDROMORPHONE HCL 1 MG/ML INJ IV PRN ×7 (00:02→23:27)
[2019-08-29] MEDS: NA CHLORIDE 0.9% 1,000 ML IV SCH ×2 (02:00→07:23)
[2019-08-29] MEDS: PIPER/TAZO/NS 3.375gm 3.375 GM/100 ML BAG IVPB SCH ×3 (05:12→21:26)
[2019-08-29 05:39] LABS: BUN Blood Urea Nitrogen 9 mg/dL (7-18); Bicarbonate 29 mmol/L (21-32); Glucose Level 120 mg/dL (74-106); Magnesium 1.9 mg/dL (1.8-2.4); Phosphorus 2.3 mg/dL (2.5-4.9); Potassium 3.4 mmol/L (3.5-5.1); Sodium Level 141 mmol/L (136-145)
[2019-08-29] MEDS ORDERED: POTASSIUM 25 MEQ EFFERV TAB PO ONE ×2 (07:15→22:00)
[2019-08-29] MEDS ORDERED: POTASSIUM PHOS IN 0.9 % NACL 15 MMOL/250 ML BAG IV ONE (07:16)
[2019-08-29] MEDS: PANTOPRAZOLE 40 MG INJ IVP SCH (07:23)
[2019-08-29] MEDS: DULERA 100/5 (MOMETASONE/FORMOTEROL) INHALER IH SCH ×2 (07:24→20:15)
[2019-08-29] MEDS: ENOXAPARIN 40 MG/0.4 ML SQ SCH (07:34)
[2019-08-29 10:40] LABS: Absolute Lymphocytes (CBC) 2.1 K/uL (0.7-4.9); Basophils % 1.5 % (0-1.3); Hematocrit 34.6 % (39.6-49.0); MPV 8.8 fL (7.6-11.3); RBC Red Blood Cell Count 3.74 M/uL (4.33-5.43)
[2019-08-29] MEDS ORDERED: NA CHLORIDE 0.9% 1,000 ML IV SCH (14:47)
--- NOTE | 2019-08-29 17:35 | PN ---
Date of Progress Note: 08/29/2019 Subjective: The patient is awake, alert, no complaint. Tolerating clear liquids. His colostomy has air and some serous fluid. No stool yet. Objective: Vital signs: Stable, afebrile. White count is down to 13.4. There is no left shift any more. Chemistry reviewed, electrolytes are being checked and replaced as needed. Abdomen: Benign. Wound is clean dry and intact. Colostomy is working well. Assessment: Status post Juli's procedure for perforated sigmoid diverticulitis and appendectomy. Recommendations: We will advance diet as tolerated colostomy teaching underway continue IV antibioti cs. The patient is clinically doing well. Hopefully discharge in 24-48 hours. /MODL Voice ID: [id number] Report ID: [id number]
--- NOTE | 2019-08-29 17:56 | P.PN ---
Subjective Date of Service: 08/29/19 Chief Complaint: Hypoxemia Subjective: Improving, Doing well Physical Examination - Vital Signs Temperature: 97.6 F Blood Pressure: 144/97 Pulse: 84 Respirations: 24 Pulse Ox (%): 93 - Physical Exam General: Alert, Cooperative HEENT: Atraumatic Neck: Supple Respiratory: Clear to auscultation bilaterally, Normal air movement Cardiovascular: Normal pulses, Regular rate/rhythm Gastrointestinal: Other (Postop for changes noted) - Studies Medications List Reviewed: Yes Assessment & Plan Discharge Plan: Home Plan to discharge in: Greater than 2 days Physician Review Additional Text: Assessment Acute abdomen, leukocytosis secondary to perforated sigmoid diverticulitis and peritonitis status post exploratory laparotomy, Juli's procedure and appendectomy , peritoneal culture positive for E coli Hypoxia likely related to right base atelectasis and possible early left base pneumonia with underlying COPD Hyperglycemia, pre diabetes Tobacco abuse Plan Acute abdomen, leukocytosis secondary to perforated sigmoid diverticulitis and peritonitis status post exploratory laparotomy, Juli's procedure and appendectomy, peritoneal culture positive for E coli: Spoke with surgery. Patient on clear liquids. No longer with NG tube. Await further recommendations from surgery. Continue IV antibiotic therapy. Encourage incent devin spirometer. Continue wean off oxygen. Encourage ambulation. Anticipate improvement over the next several days. Hypoxia likely related to right base atelectasis and possible early left base pneumonia with underlying COPD: Wean off oxygen. Encourage incentive spirometer. Continue current medications. Hyperglycemia,pre diabetes: Hemoglobin A1c 6.3. Will monitor blood sugar closely. Recommend recheck A1c in 3 months to monitor his progress. Will provide education on diabetes/pre diabetes. Tobacco abuse: Counseled patient on need for tobacco cessation. Will provide patient with nicotine patch. Time Spent Managing Pts Care (In Minutes): 55
[2019-08-30] MEDS: HYDROMORPHONE HCL 1 MG/ML INJ IV PRN ×2 (03:53→08:00)
[2019-08-30 05:01] LABS: Basophils % 0.7 % (0-1.3); Hematocrit 33.6 % (39.6-49.0); Lymphocytes % 15.5 % (15.3-44.8); MPV 8.9 fL (7.6-11.3); RBC Red Blood Cell Count 3.67 M/uL (4.33-5.43)
[2019-08-30 05:17] LABS: BUN Blood Urea Nitrogen 6 mg/dL (7-18); Bicarbonate 30 mmol/L (21-32); Glucose Level 136 mg/dL (74-106); Potassium 3.5 mmol/L (3.5-5.1); Sodium Level 143 mmol/L (136-145)
[2019-08-30] MEDS: PIPER/TAZO/NS 3.375gm 3.375 GM/100 ML BAG IVPB SCH (05:28)
[2019-08-30] MEDS ORDERED: POTASSIUM 25 MEQ EFFERV TAB PO ONE (06:00)
[2019-08-30] MEDS: DULERA 100/5 (MOMETASONE/FORMOTEROL) INHALER IH SCH ×2 (09:00→20:23)
[2019-08-30] MEDS: ENOXAPARIN 40 MG/0.4 ML SQ SCH (10:12)
[2019-08-30] MEDS: PANTOPRAZOLE 40 MG INJ IVP SCH (10:13)
--- NOTE | 2019-08-30 11:36 | PN ---
Date of Progress Note: 08/30/2019 Subjective: The patient is awake, alert, tolerating diet, ambulating. He is still on oxygen. Vital s are stable. He is afebrile. Colostomy has lots of air and some liquid stool. Laboratory Data: Shows a white count of 13.2, there is no left shift. Chemistry reviewed, essential ly unremarkable. Objective: Abdomen: Soft, nondistended, nontender. Positive bowel sounds. Wound is clean, dry, an d intact. Colostomy is functioning well. Assessment: Status post Juli's procedure and appendectomy, perforated sigmoid diverticulitis. Recommendations: The patient is clinically doing well. Once he is weaned off the oxygen, he will be cleared for discharge hopefully in the next 24-48 hours and plan of care was discussed with the sherron ent in detail regarding 6 weeks of full recovery and then colonoscopy in 3 months with reversal of th e colostomy. /MODL Voice ID: [id number] Report ID: [id number]
[2019-08-30] MEDS: HYDROMORPHONE HCL 2 MG/ML inj IV PRN ×4 (11:50→23:10)
--- NOTE | 2019-08-30 13:42 | P.PN ---
Subjective Date of Service: 08/30/19 Chief Complaint: Hypoxemia Subjective: Improving Physical Examination - Vital Signs Temperature: 97.8 F Blood Pressure: 153/90 Pulse: 68 Respirations: 18 Pulse Ox (%): 98 - Physical Exam General: Alert HEENT: Atraumatic Neck: Supple Respiratory: Clear to auscultation bilaterally Cardiovascular: Regular rate/rhythm Gastrointestinal: Other (Post op changes) Neurological: Normal speech, Normal strength at 5/5 x4 extr, Normal tone, Normal affect - Studies Medications List Reviewed: Yes Assessment & Plan Discharge Plan: Home Plan to discharge in: 24 Hours Physician Review Additional Text: Assessment Acute abdomen, leukocytosis secondary to perforated sigmoid diverticulitis and peritonitis status post exploratory laparotomy, Juli's procedure and appendectomy , peritoneal culture positive for E coli Hypoxia likely related to right base atelectasis and possible early left base pneumonia with underlying COPD Hyperglycemia, pre diabetes Tobacco abuse Plan Acute abdomen, leukocytosis secondary to perforated sigmoid diverticulitis and peritonitis status post exploratory laparotomy, Juli's procedure and ap pendectomy, peritoneal culture positive for E coli: Spoke with surgery. Patient doing well this time. Patient on full liquid diet. Anticipate advancement as tolerated. Continue antibiotic therapy. Will deescalate medication. Encourage incentive spirometer. Patient off oxygen at this time. Surgery plans to discharge patient tomorrow if with improvement. Hypoxia likely related to right base atelectasis and possible early left base pneumonia with underlying COPD: Wean off oxygen. Encourage incentive spirometer. Continue current medications, will try to deescalate antibiotics. Hyperglycemia,pre diabetes: Hemoglobin A1c 6.3. Will monitor blood sugar closely. Recommend recheck A1c in 3 months to monitor his progress. Will provide education on diabetes/pre diabetes. Tobacco abuse: Counseled patient on need for tobacco cessation. Will provide patient with nicotine patch. Time Spent Managing Pts Care (In Minutes): 55
[2019-08-30] MEDS: levoFLOXacin 500 MG TAB PO SCH (15:28)
[2019-08-31] MEDS: HYDROMORPHONE HCL 2 MG/ML inj IV PRN ×4 (02:06→10:19)
[2019-08-31 05:47] VITALS: BMI 32.6
[2019-08-31 05:50] LABS: Absolute Lymphocytes (CBC) 2.6 K/uL (0.7-4.9); Basophils % 0.6 % (0-1.3); Hematocrit 34.2 % (39.6-49.0); MPV 9.2 fL (7.6-11.3); RBC Red Blood Cell Count 3.78 M/uL (4.33-5.43)
[2019-08-31 06:29] LABS: BUN Blood Urea Nitrogen 7 mg/dL (7-18); Bicarbonate 27 mmol/L (21-32); Glucose Level 158 mg/dL (74-106); Magnesium 2.1 mg/dL (1.8-2.4); Phosphorus 3.5 mg/dL (2.5-4.9); Potassium 3.8 mmol/L (3.5-5.1); Sodium Level 142 mmol/L (136-145)
[2019-08-31] MEDS: DULERA 100/5 (MOMETASONE/FORMOTEROL) INHALER IH SCH ×2 (09:00→20:00)
[2019-08-31] MEDS ORDERED: POTASSIUM CL SA 10 MEQ TAB PO ONE (09:00)
[2019-08-31] MEDS: levoFLOXacin 500 MG TAB PO SCH (09:15)
[2019-08-31] MEDS: ENOXAPARIN 40 MG/0.4 ML SQ SCH (09:15)
[2019-08-31] MEDS: PANTOPRAZOLE 40 MG INJ IVP SCH (09:15)
--- NOTE | 2019-08-31 11:43 | P.PN ---
Subjective Date of Service: 08/31/19 Chief Complaint: Hypoxemia Subjective: Improving Physical Examination - Vital Signs Temperature: 98.4 F Blood Pressure: 129/82 Pulse: 73 Respirations: 16 Pulse Ox (%): 95 - Physical Exam General: Alert, Cooperative HEENT: Atraumatic Neck: Supple Respiratory: Clear to auscultation bilaterally, Normal air movement Cardiovascular: Normal pulses, Regular rate/rhythm Gastrointestinal: Other (Postoperative changes noted) Neurological: Normal speech, Normal strength at 5/5 x4 extr, Normal tone, Normal affect - Studies Microbiology Data (last 24 hrs): 08/25/19 14:25 Blood - Blood Aerobic Blood Culture - Final No growth in 5 days. 08/25/19 14:25 Blood - Blood Anaerobic Blood Culture - Final No growth in 5 days. Medications List Reviewed: Yes Assessment & Plan Discharge Plan: Home Plan to discharge in: 24 Hours Physician Review Additional Text: Assessment Acute abdomen, leukocytosis secondary to perforated sigmoid diverticulitis and peritonitis status post exploratory laparotomy, Juli's procedure and appendectomy , peritoneal culture positive for E coli Hypoxia likely related to right base atelectasis and possible early left base pneumonia with underlying COPD Hyperglycemia, pre diabetes Tobacco abuse Plan Acute abdomen, leukocytosis secondary to perforated sigmoid diverticulitis and peritonitis status post exploratory laparotomy, Juli's procedure and appendectomy, peritoneal culture positive for E coli: Antibiotics were deescalated yesterday. White count slightly elevated. Spoke with surgery at length. Surgery desires to discontinue oral Levaquin and switched back to IV Zosyn for 1 more day. Will discuss further about the possibility of switching Zosyn to Rocephin as Rocephin has better peritoneal tissue coverage. This was recommended by pharmacy. I anticipate discharge tomorrow if white count improved on Levaquin and Flagyl. Patient on soft diet at this time. Continue incentive spirometer. Patient off oxygen. Encourage ambulation. I will turn over the service to the hospitalist team tomorrow. I will go over the plan of care with him. Hypoxia likely related to right base atelectasis and possible early left base pneumonia with underlying COPD: Patient off oxygen. Encourage incentive spirometer. Continue current medications, will try to deescalate antibiotics. Hyperglycemia,pre diabetes: Hemoglobin A1c 6.3. Will monitor blood sugar closely. Recommend recheck A1c in 3 months to monitor his progress. Will provide education on diabetes/pre diabetes. Tobacco abuse: Counseled patient on need for tobacco cessation. Will provide patient with nicotine patch. Time Spent Managing Pts Care (In Minutes): 55
--- NOTE | 2019-08-31 11:49 | PN ---
Date of Progress Note: 08/31/2019 Subjective: The patient is awake, alert. No complaint. Objective: Vital Signs: Stable. Afebrile. Abdomen: Benign there is stool in the colostomy bag, working well. Laboratory Data: White count is slightly higher at 14,000. Assessment: Status post Juli's procedure and appendectomy, perforated sigmoid diverticulitis. Recommendation: I discussed the case with Dr. Parker's group. We will place the patient back on Z osyn IV and continue Levaquin upon discharge. The patient will go home on Levaquin and Flagyl. Keep him extra day. Colostomy teaching has been done and training has been done. The patient is clinica lly stable. /MODL Voice ID: [id number] Report ID: [id number]
[2019-08-31] MEDS: HYDROCODONE/APAP 7.5/325 MG TAB PO PRN ×3 (12:57→22:12)
[2019-08-31] MEDS: CEFTRIAXONE/SWI 2gm 2 GM/20 ML SYR IV SCH (16:49)
[2019-08-31] MEDS ORDERED: PIPER/TAZO/NS 3.375gm 3.375 GM/100 ML BAG IVPB SCH (17:00)
[2019-09-01] MEDS: HYDROCODONE/APAP 7.5/325 MG TAB PO PRN ×5 (02:45→20:13)
[2019-09-01] MEDS: CEFTRIAXONE/SWI 2gm 2 GM/20 ML SYR IV SCH ×2 (04:38→16:23)
[2019-09-01 05:04] LABS: Absolute Lymphocytes (CBC) 2.6 K/uL (0.7-4.9); Basophils % 0.7 % (0-1.3); Lymphocytes % 16.9 % (15.3-44.8); MPV 9.2 fL (7.6-11.3); RBC Red Blood Cell Count 3.95 M/uL (4.33-5.43)
[2019-09-01] MEDS: ENOXAPARIN 40 MG/0.4 ML SQ SCH (08:26)
[2019-09-01] MEDS: DULERA 100/5 (MOMETASONE/FORMOTEROL) INHALER IH SCH ×2 (08:28→20:13)
[2019-09-01] MEDS: PANTOPRAZOLE 40 MG INJ IVP SCH (08:29)
[2019-09-01] MEDS ORDERED: levoFLOXacin 500 MG TAB PO SCH (09:00)
--- NOTE | 2019-09-01 09:37 | RAD REPORT ---
EXAM DESCRIPTION: RAD - Chest Single View - 09/01/2019 8:43 am CLINICAL HISTORY: Elevated WBC COMPARISON: Portable August 25 TECHNIQUE: AP portable chest image was obtained 09/01/2019 8:43 am . FINDINGS: NG tube has been removed. Lung volumes are low. Left base opacification has improved. Righ t base atelectasis remains. There is some hazy airspace opacification in the left upper lobe in the m id right lung field. This ground-glass opacification is new from the prior study. Correlation is need ed with the patient's coronal virus testing. Trachea is midline. Heart and vasculature are normal. No measurable pleural effusion and no pneumotho rax. No acute bony abnormality seen. No acute aortic findings suspected. IMPRESSION: New patchy airspace opacification seen in the mid right lung field and left upper lobe. Left base findings have substantially cleared. The new findings may be atelectasis given the low lung volume. However, development of ground-glass o pacification in the current clinical environment raises the possibility of COVID-19 pneumonia. Correl ation is needed with the patient's coronal virus testing.
--- NOTE | 2019-09-01 10:26 | PN ---
Date of Progress Note: 09/01/2019 Subjective: The patient is awake, alert, complaining of left lower chest tightness. No shortness of breath. No radiation. Just not feeling well. He is tolerating diet well. His colostomy is workin g well. Objective: Vital Signs: His vitals are stable. He is afebrile. Abdomen: Benign. Laboratory Data: Reviewed. White count is slightly up at 15.3. It was 14.3 yesterday. His COVID t est was negative a week ago. However, a chest x-ray was ordered at this point. It shows possibility of a COVID pneumonia developing. Assessment: Status post exploratory laparotomy, Juli's procedure, appendectomy for perforated si gmoid diverticulitis, rule out COVID pneumonia. Recommendation: We will repeat the COVID test today. We will continue keeping him on IV antibiotics and I will talk to the hospitalist regarding whether we need to go ahead and consult Pulmonary. Act ually I will go ahead and consult Dr. Brannon so we can begin to address this COVID issue more. SUSAN/SUSANNE Voice ID: [id number] Report ID: [id number]
--- NOTE | 2019-09-01 10:34 | P.PN ---
Subjective Date of Service: 09/01/19 Chief Complaint: Hypoxemia Subjective: No new changes Review of Systems 10-point ROS is otherwise unremarkable Physical Examination - Vital Signs Temperature: 97.9 F Blood Pressure: 138/76 Pulse: 54 Respirations: 24 Pulse Ox (%): 92 - Physical Exam General: Alert, In no apparent distress HEENT: Atraumatic, Normocephalic Neck: Supple Respiratory: Clear to auscultation bilaterally, Normal air movement Cardiovascular: Regular rate/rhythm, Normal S1 S2 Capillary refill: <2 Seconds Gastrointestinal: Soft and benign, Tenderness Musculoskeletal: No swelling Integumentary: No rashes Neurological: Normal strength at 5/5 x4 extr Lymphatics: No axilla or inguinal lymphadenopathy - Studies Laboratory Tests 08/25/19 08/25/19 08/25/19 12:33 13:10 13:10 WBC 32.2 H* RBC 5.02 Hgb 15.5 Hct 46.6 MCV 92.9 MCH 30.8 MCHC 33.2 RDW 13.3 Plt Count 340 MPV 9.8 Neutrophils % 89.5 H Lymphocytes % 6.3 L Monocytes % 3.7 Eosinophils % 0.2 Basophils % 0.3 Absolute Neutrophils 28.9 H Segmented Neutrophils 80 Band Neutrophils 5 H Absolute Lymphocytes 2.0 Lymphocytes 9 L Monocytes 6 Absolute Monocytes 1.2 Absolute Eosinophils 0.1 Absolute Basophils 0.1 Morphology Comment Not seen Sodium 141 Potassium 4.0 Chloride 110 H Carbon Dioxide 25 BUN 13 Creatinine 0.90 Whole Bld Creatinine 0.8 Estimated GFR > 90 Glucose 191 H Calcium 9.0 Total Bilirubin 0.5 Direct Bilirubin 0.1 AST 16 ALT 23 Alkaline Phosphatase 81 Serum Total Protein 8.0 Albumin 3.5 Globulin 4.5 H Albumin/Globulin Ratio 0.8 L Lipase 68 L Medications List Reviewed: Yes Assessment & Plan Physician Review Additional Text: Assessment Acute abdomen, leukocytosis secondary to perforated sigmoid diverticulitis and peritonitis status post exploratory laparotomy, Juli's procedure and appendectomy , peritoneal culture positive for E coli Hypoxia likely related to right base atelectasis and possible early left base pneumonia with underlying COPD Hyperglycemia, pre diabetes Tobacco abuse Plan Acute abdomen, leukocytosis secondary to perforated sigmoid diverticulitis and peritonitis status post exploratory laparotomy, Juli's procedure and appendectomy, peritoneal culture positive for E coli: Antibiotics were d eescalated yesterday. White count slightly elevated. Spoke with surgery at length. switched back to IV Zosyn for 1 more day. Continue incentive spirometer. Patient off oxygen. Encourage ambulation. Hypoxia likely related to right base atelectasis and possible early left base pneumonia with underlying COPD: Patient off oxygen. Encourage incentive spirometer. Continue current medications, will try to deescalate antibiotics. Hyperglycemia,pre diabetes: Hemoglobin A1c 6.3. Will monitor blood sugar closely. Recommend recheck A1c in 3 months to monitor his progress. Will provide education on diabetes/pre diabetes. Tobacco abuse: Counseled patient on need for tobacco cessation. Will provide patient with nicotine patch. 09/01/2019 The patient is awake alert still has abdominal discomfort and pain Leukocytosis likely worsened today Afebrile Monitor closely discusses pharmacy Add on Flagyl for anaerobic coverage Advice ambulation Advised incentive spirometer Appreciate help from surgery Possible Dc in a.m. if leukocytosis better and pain is controlled well Time Spent Managing Pts Care (In Minutes): 38
[2019-09-01] MEDS: metroNIDAZOLE 500 MG TABLET PO SCH ×2 (11:56→20:13)
[2019-09-01] MEDS: DOXYCYCLINE 100 MG CAP PO SCH ×2 (11:59→20:13)
--- NOTE | 2019-09-01 15:03 | EKG ---
Test Date: 2019-09-01 Test Time: 09:10:58 Cath Lab Radiology Technician: MAYURI MEASUREMENT RESULTS: Intervals: Rate: 60 ME: 112 QRSD: 88 QT: 440 QTc: 440 Bracey: P: 2 ME: 112 QRS: 54 T: 38 INTERPRETIVE STATEMENTS: Normal sinus rhythm Nonspecific ST abnormality Abnormal ECG No previous ECG available for comparison Electronically Signed On 09-01-19 15:02:39 CDT by Colten Solo
[2019-09-02] MEDS: HYDROCODONE/APAP 7.5/325 MG TAB PO PRN ×2 (00:12→10:01)
[2019-09-02] MEDS: CEFTRIAXONE/SWI 2gm 2 GM/20 ML SYR IV SCH (04:47)
[2019-09-02] MEDS ORDERED: ARFORMOTEROL TARTRATE 15 MCG/2 ML VIAL.NEB NEB SCH (08:52)
--- NOTE | 2019-09-02 08:54 | P.PN ---
Subjective Date of Service: 09/05/19 Chief Complaint: Elevated WBC Doign well. Abnormal CXRY. ILD Presumed cOPD , No fever Review of Systems General: Weakness Respiratory: Shortness of Breath Physical Examination - Vital Signs Temperature: 97.5 F Blood Pressure: 145/71 Pulse: 67 Respirations: 18 Pulse Ox (%): 94 - Physical Exam General: Alert, Oriented x3 Respiratory: Crackles/rales, Expiratory wheezes Cardiovascular: No edema - Studies Medications List Reviewed: Yes Assessment & Plan - Problems (Diagnosis) (1) COPD (chronic obstructive pulmonary disease) Status: Acute Plan: cxry suggestive of COPD changes. DoubtCOVID. Prev COVID was neg. no fever.PRev COVID neg No sigchange in CXYR since admission Vitals stable .eating and drinking. Nomralrenal function Add Doxy for MRSA. Consider stopping IV Rocephin. Levaquin Po is equivalent to IV rocephin. Consider discarge AB combination of Augmentin and Doxy/ Will need MDi inhaler. OP PFT's Qualifiers: COPD type: unspecified COPD Qualified Code(s): J44.9 - Chronic obstructive pulmonary disease, unspecified
[2019-09-02 09:22] LABS: Absolute Lymphocytes (CBC) 2.6 K/uL (0.7-4.9); Basophils % 0.9 % (0-1.3); Hematocrit 37.6 % (39.6-49.0); Lymphocytes % 18.2 % (15.3-44.8); MPV 9.2 fL (7.6-11.3); RBC Red Blood Cell Count 4.11 M/uL (4.33-5.43)
[2019-09-02 09:39] LABS: ALT/SGPT 35 U/L (12-78); AST/SGOT 38 U/L (15-37); Albumin 2.3 g/dL (3.4-5.0); Alkaline Phosphatase 146 U/L (45-117); BUN Blood Urea Nitrogen 8 mg/dL (7-18); Bicarbonate 26 mmol/L (21-32); Bilirubin Total 0.4 mg/dL (0.2-1.0); Glucose Level 119 mg/dL (74-106); Potassium 3.7 mmol/L (3.5-5.1); Protein, Total 7.1 g/dL (6.4-8.2); Sodium Level 141 mmol/L (136-145)
[2019-09-02 09:56] VITALS: O2SAT 97
[2019-09-02] MEDS: ENOXAPARIN 40 MG/0.4 ML SQ SCH (10:02)
[2019-09-02] MEDS: PANTOPRAZOLE 40 MG INJ IVP SCH (10:02)
[2019-09-02] MEDS: DOXYCYCLINE 100 MG CAP PO SCH (10:03)
[2019-09-02] MEDS: metroNIDAZOLE 500 MG TABLET PO SCH (10:03)
[2019-09-02] MEDS: DULERA 100/5 (MOMETASONE/FORMOTEROL) INHALER IH SCH (10:04)
[2019-09-02] MEDS: SODIUM CHLORIDE 0.9% 10ML INJ IV PRN (10:06)
--- NOTE | 2019-09-02 10:44 | P.DS ---
Admission Date: 08/25/19 Discharge Date: 09/02/19 Disposition: ROUTINE DISCHARGE Discharge Condition: GOOD Reason for Admission: Elevated WBC Brief History of Present Illness: 39-year-old male with no known medical history presented the emergency department for severe abdominal pain. Patient states that he was having a bowel movement at approximately 9:00 a.m. this morning and had a sudden severe onset pain and could barely stand up. The patient later presented to the emergency department with severe abdominal pain and was evaluated. During his evaluation in the emergency department patient was found to have an acute abdomen with a white blood cell count of [address] showing possible acute appendicitis and diverticulitis with microperforation. General surgery was immediately consulted while patient was in the emergency department and was taken for emergent surgery. Patient is going to have an exploratory laparotomy with General Surgery. After ex lap patient will be admitted, admission hospitalist service will help manage patient medically. Hospital Course: Acute abdomen, leukocytosis secondary to perforated sigmoid diverticulitis and peritonitis status post exploratory laparotomy, Juli's procedure and appendectomy, peritoneal culture positive for E coli: Hypoxia likely related to right base atelectasis and possible early left base pneumonia with underlying COPD: Hyperglycemia,pre diabetes: Hemoglobin A1c 6.3. Tobacco abuse: The patient was admitted and was monitored closely under telemetry. He u nderwent status post exploratory laparotomy with Juli's procedure and appendectomy. Postsurgical he had hypoxia for which initially was placed on oxygen support and which was tapered off. Pulmonology was consulted as well. And was started on bronchodilators. Counseled patient on need for tobacco cessation. Will provide patient with nicotine patch. He has responded well to the treatment and wanted to go home and is being discharged home today in a stable condition with advice to follow up with PCP in 1 week and also with surgery and pulmonology in 1-2 weeks. Vital Signs/Physical Exam: Temp Pulse Resp BP Pulse Ox 97.5 F 67 18 145/71 H 94 09/02/19 08:54 09/02/19 08:54 09/02/19 08:54 09/02/19 08:54 09/02/19 08:54 General: Alert, In no apparent distress HEENT: Atraumatic, Normocephalic Neck: Supple, 2+ carotid pulse no bruit Respiratory: Clear to auscultation bilaterally, Normal air movement Cardiovascular: Normal pulses, Regular rate/rhythm Capillary refill: <2 Seconds Gastrointestinal: Soft and benign, W/out hepatosplenomegaly Musculoskeletal: No clubbing, No swelling Integumentary: No rashes, No significant lesion Neurological: Normal speech, Normal strength at 5/5 x4 extr Lymphatics: No axilla or inguinal lymphadenopathy Laboratory Data at Discharge: WBC 14.4 K/uL (4.3-10.9) H 09/02/19 08:57 Hgb 12.6 g/dL (13.6-17.9) L 09/02/19 08:57 Hct 37.6 % (39.6-49.0) L 09/02/19 08:57 Plt Count 453 K/uL (152-406) H 09/02/19 08:57 Sodium 141 mmol/L (136-145) 09/02/19 08:57 Potassium 3.7 mmol/L (3.5-5.1) 09/02/19 08:57 BUN 8 mg/dL (7-18) 09/02/19 08:57 Creatinine 0.78 mg/dL (0.55-1.3) 09/02/19 08:57 Glucose 119 mg/dL (74-106) H 09/02/19 08:57 Phosphorus 3.5 mg/dL (2.5-4.9) 08/31/19 05:25 Magnesium 2.1 mg/dL (1.8-2.4) 08/31/19 05:25 Total Bilirubin 0.4 mg/dL (0.2-1.0) 09/02/19 08:57 AST 38 U/L (15-37) H 09/02/19 08:57 ALT 35 U/L (12-78) 09/02/19 08:57 Alkaline Phosphatase 146 U/L (45-117) H 09/02/19 08:57 Lipase 68 U/L (73-393) L 08/25/19 13:10 Home Medications: Albuterol Inhaler [Ventolin Inhaler*] 2 puff IH Q6H PRN #1 hfa.aer.ad 09/02/19 Arformoterol Tartrate [Brovana] 15 mcg NEB BIDRESP #1 vial.neb 09/02/19 Hydrocodone 7.5/APAP 325 [[place] 7.5/325 mg] 1 tab PO Q6H PRN #10 tab 09/02/19 Ibuprofen [Motrin] 600 mg PO Q6H PRN #20 tab 09/02/19 Levofloxacin [Levaquin] 500 mg PO DAILY #7 tablet 09/02/19 Mometasone/Formoterol [Dulera 100 Mcg/5 Mcg Inhaler] 2 puff IH BID #1 inhaler 09/02/19 Pantoprazole Sodium [Protonix] 40 mg PO DAILY #20 tablet. 09/02/19 metroNIDAZOLE [Flagyl*] 500 mg PO TID #21 tablet 09/02/19 New Medications: Arformoterol Tartrate [Brovana] 15 mcg NEB BIDRESP #1 vial.neb Mometasone/Formoterol [Dulera 100 Mcg/5 Mcg Inhaler] 2 puff IH BID #1 inhaler metroNIDAZOLE [Flagyl*] 500 mg PO TID #21 tablet Levofloxacin [Levaquin] 500 mg PO DAILY #7 tablet Ibuprofen [Motrin] 600 mg PO Q6H PRN #20 tab PRN Reason: Abdominal Pain Hydrocodone 7.5/APAP 325 [[place] 7.5/325 mg] 1 tab PO Q6H PRN #10 tab PRN Reason: Pain Pantoprazole Sodium [Protonix] 40 mg PO DAILY #20 tablet. Albuterol Inhaler [Ventolin Inhaler*] 2 puff IH Q6H PRN #1 hfa.aer.ad PRN Reason: Shortness Of Breath Activity: No lifting more than 10 lbs Followup: Rafa Mcleod MD [ACTIVE - CAN ADMIT] - Ed Ambrocio MD [ACTIVE - CAN ADMIT] - 1 Week Time spent managing pt's care (in minutes): 40
--- NOTE | 2019-09-02 12:03 | DS ---
Admitting Diagnosis: Peritonitis with perforated sigmoid diverticulitis. Procedures Performed: Exploratory laparotomy, Juli's procedure, appendectomy. Hospital Course: This is a 39-year-old gentleman, who underwent the aforementioned procedure. Posto peratively, he was in the ICU for several days and was being followed by the hospitalist. Medical is sues were addressed by the hospitalist. Dr. Mcleod was consulted as there was some concern of COVI D. His initial test was negative. Eventually, he started having bowel function through his colostom y. His white count was over 32,000, has come down to 14,000, but he is eating, he is afebrile. Powers stomy is working well. Chest x-ray has improved the initial infiltrate that was there upon admission . His pain is well controlled. Therefore, the patient will be discharged home on antibiotics. Disposition: Home. Condition: Stable. Discharge Instructions: Resume home medications and diet. Activity as tolerated. No heavy lifting. Follow up in my office in a week. Call for appointment. Antibiotics per the hospitalist. Pain me dicine per the hospitalist. /MODL Voice ID: [id number] Report ID: [id number]
[2019-09-05 06:55] VITALS: BP 145/71; TEMP 97.5
== END 2019-09-02 14:20 | disposition home or self-care (01) | DRG 329 ==
LOC: ER 11:30 → ERHOLD 14:50 → 3RD-ICU 18:21 → 2ND 09-01 13:14
PROVIDERS: ADMIT Surgery; ATTEND Surgery
PROC: 0DTJ0ZZ Resection of Appendix, Open Approach (ICD-10-PCS; 2019-08-25)
PROC: 0DBN0ZZ Excision of Sigmoid Colon, Open Approach (ICD-10-PCS; principal; 2019-08-25 14:30)
DX: K57.20 Diverticulitis of large intestine with perforation and abscess without bleeding (principal); K35.32 Acute appendicitis with perforation, localized peritonitis, and gangrene, without abscess; J18.9 Pneumonia, unspecified organism; J44.0 Chronic obstructive pulmonary disease with (acute) lower respiratory infection; F17.200 Nicotine dependence, unspecified, uncomplicated; D72.829 Elevated white blood cell count, unspecified; R73.9 Hyperglycemia, unspecified; Z20.828 Contact with and (suspected) exposure to other viral communicable diseases; R06.02 Shortness of breath; B96.20 Unspecified Escherichia coli [E. coli] as the cause of diseases classified elsewhere; B95.62 Methicillin resistant Staphylococcus aureus infection as the cause of diseases classified elsewhere; Z79.899 Other long term (current) drug therapy
CPT/HCPCS: 36415; 71045; 74177; 80048; 80053; 80076; 82565; 83036; 83605; 83690; 83735; 84100; 84132; 84145; 85025; 87040; 87070; 87075; 87077; 87186; 87205; 88302; 88304; 88305; 88307; 93005; 94640; 97116; 97161; 97530; 99285; C9113; J0330; J0696; J1170; J1650; J2250; J2405; J2543; J2704; J2710; J3010; J3475; J7030; J7040; J7605; J7606; Q9967; U0002

== ENCOUNTER 2019-10-17 08:57 | Day surgery (SDC) | payer SELFPAY ==
[2019-10-16 12:01] LABS: Absolute Lymphocytes (CBC) 2.9 K/uL (0.7-4.9); Basophils % 1.2 % (0-1.3); Hematocrit 47.9 % (39.6-49.0); Lymphocytes % 37.2 % (15.3-44.8); MPV 9.4 fL (7.6-11.3); RBC Red Blood Cell Count 5.21 M/uL (4.33-5.43)
[2019-10-16 12:14] LABS: Potassium 4.4 mmol/L (3.5-5.1)
[2019-10-17] MEDS: Ringers Lactate 1,000 ML IV ONE (09:11)
[2019-10-17] MEDS ORDERED: LIDOCAINE 1% MPF 5 ML VIAL ONE (09:41)
[2019-10-17] MEDS ORDERED: propofoL 200 MG/20 ML VIAL IV ONE (09:41)
[2019-10-17] MEDS ORDERED: MIDAZOLAM HCL 2 MG/2 ML INJ ONE (09:41)
--- NOTE | 2019-10-17 10:05 | ENDO RPT ---
[address], [address] COLONOSCOPY PROCEDURE REPORT EXAM DATE: 10/17/2019 PATIENT NAME: Ravi Quintero MR #: [id number] BIRTHDATE: 1980 ATTENDING: Ed Ambrocio M.D. STATUS: outpatient HOT DIPPER: Izabella Hernandez CST and Yamel Kemp RN INDICATIONS: The patient is a 39 yr old Male here for a colonoscopy due to diverticulitis and S/P perforated diverticulitis with emergent colostomy PROCEDURE PERFORMED: Colonoscopy MEDICATIONS: Per Anesthesia. ESTIMATED BLOOD LOSS: None CONSENT: The patient understands the risks and benefits of the procedure and understands that these risks include, but are not limited to: sedation, allergic reaction, infection, perforation and/or bleeding. Alternative means of evaluation and treatment include, among others: physical exam, x-rays, and/or surgical intervention. The patient elects to proceed with this endoscopic procedure. DESCRIPTION OF PROCEDURE: During intra-op preparation period all mechanical medical equipment was checked for proper function. Hand hygiene and appropriate measures for infection prevention was taken. Procedure, possible complications, alternatives including, but not limited to possibility of bleeding, perforation, tear, infection, sepsis, need for surgery, need for blood transfusion, were explained to the patient. After the risks, benefits and alternatives of the procedure were thoroughly explained, Informed consent was verified, confirmed and timeout was successfully executed by the treatment team. The patient was placed in the left lateral position. A digital rectal exam was performed and revealed external hemorrhoids and A digital rectal exam was performed and revealed external thrombosed hemorrhoids. After appropriate level of anesthesia, the scope was passed. The EC-[id number] ([id number]) endoscope was introduced through the anus and advanced to the cecum, which was identified by the ileocecal valve. The quality of the prep was good. The instrument was then slowly withdrawn as the colon was fully examined. Scope withdrawal time was 09 minutes. COLON FINDINGS: A normal appearing cecum, ileocecal valve, and appendiceal orifice were identified. the ascending, transverse, descending, sigmoid colon, and rectum appeared unremarkable. Retroflexed views revealed no abnormalities. The scope was then completely withdrawn from the patient and the procedure terminated. ADVERSE EVENTS: There were no complications. IMPRESSIONS: 1. A normal appearing cecum, ileocecal valve, and appendiceal orifice were identified. the ascending, transverse, descending, sigmoid colon, and rectum appeared unremarkable 2. External hemorrhoids RECOMMENDATIONS: 1. fiber rich diet 2. follow-up: office 2 week(s) 3. no seeds in diet 4. hemorrhoidal hygiene RECALL: Return in 10 year(s) for Colonoscopy. Ed Ambrocio M.D. eSigned: Ed Ambrocio M.D. 10/17/2019 10:05 AM cc: CPT CODES: ICD9 CODES: 1. 455.5 External hemorrhoids with other complication 2. 455.4 External thrombosed hemorrhoids PATIENT NAME: Leon Ravi LopesDerick MR#: [id number]
[2019-10-17 11:21] VITALS: TEMP 96.8
[2019-10-17 11:23] VITALS: BP 118/69; O2SAT 97
== END 2019-10-17 10:45 | disposition home or self-care (01) ==
LOC: OR 08:57
PROVIDERS: ATTEND Surgery
PROC: 0DJD8ZZ Inspection of Lower Intestinal Tract, Via Natural or Artificial Opening Endoscopic (ICD-10-PCS; principal; 2019-10-17 10:00)
DX: Z87.19 Personal history of other diseases of the digestive system (principal); K64.5 Perianal venous thrombosis; Z20.828 Contact with and (suspected) exposure to other viral communicable diseases
CPT/HCPCS: 36415; 80048; 85025; J2250; J2704; J7120; U0002

== ENCOUNTER 2019-12-01 07:36 | Inpatient (IN) | payer SELFPAY ==
[2019-11-29 09:20] LABS: Absolute Lymphocytes (CBC) 2.9 K/uL (0.7-4.9); Basophils % 1.2 % (0-1.3); Hematocrit 50.7 % (39.6-49.0); Lymphocytes % 28.4 % (15.3-44.8); MPV 9.4 fL (7.6-11.3); RBC Red Blood Cell Count 5.59 M/uL (4.33-5.43)
[2019-11-29 09:26] LABS: Potassium 4.6 mmol/L (3.5-5.1)
[2019-12-01] MEDS ORDERED: Ringers Lactate 1,000 ML IV ONE ×3 (08:45→13:26)
[2019-12-01] MEDS ORDERED: METRONIDAZOLE 500mg IVPB 500 MG/100 ML BAG IV ONE ×3 (08:45→20:16)
[2019-12-01] MEDS ORDERED: CEFOXITIN/SWI 1gm 1 GM/10 ML SYR ONE (08:45)
[2019-12-01] MEDS ORDERED: ROCURONIUM 50 MG/5 ML VIAL IV ONE ×2 (10:28→11:50)
[2019-12-01] MEDS ORDERED: MIDAZOLAM HCL 2 MG/2 ML INJ ONE (10:28)
[2019-12-01] MEDS ORDERED: LIDOCAINE 1% MPF 5 ML VIAL ONE (10:28)
[2019-12-01] MEDS ORDERED: propofoL 200 MG/20 ML VIAL IV ONE (10:28)
[2019-12-01] MEDS ORDERED: FENTANYL CITR 250 MCG/5 ML ONE ×2 (10:29→12:09)
[2019-12-01] MEDS ORDERED: ALBUTEROL INHALER 60 PUFF/8 GM IH ONE (10:55)
[2019-12-01] MEDS ORDERED: ONDANSETRON 4 MG/2 ML VIAL ONE (13:14)
[2019-12-01] MEDS ORDERED: KETOROLAC 30 MG/ML INJ ONE (13:14)
[2019-12-01] MEDS ORDERED: dexAMETHasone 4 MG/ML VIAL ONE (13:15)
[2019-12-01] MEDS ORDERED: GLYCOPYRROLATE 0.2 MG/ML SYR ONE (13:16)
[2019-12-01] MEDS ORDERED: NEOSTIGMINE 1 MG/ML -5 ML ONE (13:24)
[2019-12-01] MEDS: HYDROMORPHONE HCL 1 MG/ML INJ ONE ×2 (13:50→13:58)
[2019-12-01] MEDS ORDERED: PROMETHAZINE INJ 25 MG/ML AMP ONE (14:02)
[2019-12-01] MEDS: HYDROMORPHONE HCL 2 MG/ML inj ONE ×4 (14:07→14:25)
[2019-12-01] MEDS ORDERED: ONDANSETRON 4 MG/2 ML VIAL IV PRN (14:14)
[2019-12-01] MEDS ORDERED: ALBUTEROL INHALER 60 PUFF/8 GM IH PRN (14:16)
[2019-12-01 15:34] VITALS: BMI 32.8
[2019-12-01] MEDS: NACHLORIDE 0.45% 1,000 ML IV SCH (15:38)
[2019-12-01] MEDS: CEFOXITIN 1 GM in NA CHLORIDE 0.9% 50 ML IV SCH ×2 (15:39→21:08)
[2019-12-01] MEDS ORDERED: NACHLORIDE 0.45% 1,000 ML IV ONE (15:50)
[2019-12-01] MEDS: METRONIDAZOLE 500mg IVPB 500 MG/100 ML BAG IV SCH ×2 (17:20→21:08)
[2019-12-01] MEDS: HYDROMORPHONE HCL 1 MG/ML INJ IV PRN ×3 (19:06→23:38)
[2019-12-01] MEDS ORDERED: HYDROMORPHONE HCL 1 MG/ML INJ ONE ×3 (19:17→23:38)
[2019-12-01] MEDS ORDERED: NA CHLORIDE 0.9% 500 ML IV ONE (19:30)
[2019-12-01] MEDS ORDERED: NA CHLORIDE 0.9% 500 ML ONE (19:55)
[2019-12-01] MEDS ORDERED: CEFOXITIN SODIUM 1 GM/VIAL ONE (20:16)
[2019-12-01] MEDS ORDERED: NA CHLORIDE 0.9% 0 ML IV ONE (20:16)
--- NOTE | 2019-12-01 20:46 | OP ---
Date of Procedure: 12/01/2019 Surgeon: Ed Ambrocio MD Box Strapper: PATRICK Westbrook. Preoperative Diagnosis: Status post Juli's procedure for perforated sigmoid diverticulitis. Postoperative Diagnosis: Status post Juli's procedure for perforated sigmoid diverticulitis. Procedure: Diagnostic laparoscopy, exploratory laparotomy, extensive lysis of adhesion, and reversal of colostomy. Estimated Blood Loss: Minimal. Specimens: Colostomy. Findings: As above. Anesthesia: General. Complications: None. Disposition: The patient tolerated the procedure in stable condition, taken to Recovery in good gene ral condition. Procedure In Detail: The patient was brought to the OR and placed in supine position. General anest hesia begun. The patient was prepped and draped in usual sterile fashion in the low lithotomy positi on. Marcaine 0.5% infiltrated locally where laparoscopic incision made. A 1 cm right upper quarter incision made and subcutaneous tissue was divided. Fascia was identified and divided. #1 Vicryl and stay suture were placed. Peritoneal cavity entered with sharp and blunt dissection. A 12 mm trocar was placed into the peritoneal cavity under direct vision and pneumoperitoneum was established, and 5 mm trocar was placed in the right lower quadrant. Laparoscopy revealed extensive adhesions in the midline, which were taken down with LigaSure and scissors. Bleeding was controlled easily with LigaS ure. Extensive amount of time, approximately 45 minutes, was required to lyse all of the adhesion to expose the midline and then the midline incision was opened with a 20 blade from above the umbilicus to the pubis and then fascia was identified and divided, and peritoneal cavity entered with sharp an d blunt dissection, and then extensive lysis of adhesion was done in the pelvis and the left side of the abdomen near the colostomy. After all of the small bowel was released, colostomy and the rectum was freed from the surrounding scar tissue with the small bowel. There was a long Juli's pouch p resent and then the colostomy had been closed prior to the incisions need being made with 2-0 silk ru nning suture and the colostomy was excised down through the subcutaneous tissue and the fascia and re duced into the peritoneal cavity and the glycine was removed with Endo JOCELYN stapling device and then f at around the edges were trimmed on both the rectum and the proximal colon, and then after adequate d issection was done to ensure a tension-free anastomosis, 0 silk was used to reattach the antimesenter ic border of both Juli's pouch as well as the colon, and then Endo-JOCELYN stapling device was used i n the standard fashion to create an antimesenteric anastomosis. Open end was closed with TA 75. No evidence of bleeding was noted. This was placed in the left lower quadrant and then the rectum was i nsufflated with air and a pool of saline. No evidence of leakage was identified. Entire abdomen was thoroughly irrigated and then after all counts were correct, #1 Prolene was used to close the perito mathew surface where the colostomy was, #1 Prolene also closed the fascia and where the colostomy was a nd then #2 nylon was used to close the midline fascia. Stay suture of the Vicryl sutures was used to reapproximate each other to close the fascial defect. Then, all wounds were irrigated, bleeding con trolled with cautery, and then 3-0 chromic used to approximate subcutaneous tissue and justo used t o close skin. Sterile dressing was applied. The patient was awakened and taken to Recovery in good general condition. SUSAN/MODL Voice ID: [id number] Report ID: [id number]
[2019-12-01] MEDS: DULERA 100/5 (MOMETASONE/FORMOTEROL) INHALER IH SCH (21:10)
[2019-12-02] MEDS: METRONIDAZOLE 500mg IVPB 500 MG/100 ML BAG IV SCH ×3 (02:11→16:33)
[2019-12-02] MEDS: CEFOXITIN 1 GM in NA CHLORIDE 0.9% 50 ML IV SCH (02:11)
[2019-12-02] MEDS: NACHLORIDE 0.45% 1,000 ML IV SCH ×3 (02:11→16:13)
[2019-12-02] MEDS: HYDROMORPHONE HCL 1 MG/ML INJ IV PRN ×9 (02:12→23:47)
[2019-12-02] MEDS ORDERED: NACHLORIDE 0.45% 1,000 ML IV ONE (02:19)
[2019-12-02] MEDS ORDERED: METRONIDAZOLE 500mg IVPB 500 MG/100 ML BAG IV ONE ×2 (02:19→09:35)
[2019-12-02] MEDS ORDERED: HYDROMORPHONE HCL 1 MG/ML INJ ONE ×5 (02:19→11:54)
[2019-12-02 04:24] LABS: MPV 9.5 fL (7.6-11.3)
[2019-12-02 04:29] LABS: Absolute Lymphocytes (CBC) 1.9 K/uL (0.7-4.9); Basophils % 0.4 % (0-1.3); Lymphocytes % 8.5 % (15.3-44.8); RBC Red Blood Cell Count 4.97 M/uL (4.33-5.43)
[2019-12-02 04:33] LABS: Magnesium 1.9 mg/dL (1.8-2.4); Phosphorus 3.2 mg/dL (2.5-4.9); Potassium 4.7 mmol/L (3.5-5.1)
[2019-12-02 05:26] LABS: Blood Morphology Comment NOT SEEN (NOT SEEN); Platelet Estimate ADEQ
[2019-12-02] MEDS: DULERA 100/5 (MOMETASONE/FORMOTEROL) INHALER IH SCH ×2 (09:00→20:24)
[2019-12-02] MEDS: NICOTINE 14 MG/PAT TD SCH ×2 (09:00→09:38)
[2019-12-02] MEDS ORDERED: CEFOXITIN SODIUM 1 GM/VIAL IVPB SCH (09:00)
[2019-12-02] MEDS ORDERED: NICOTINE 21 MG/PAT TD ONE (09:34)
[2019-12-02] MEDS ORDERED: ENOXAPARIN 40 MG/0.4 ML SQ ONE (09:35)
[2019-12-02] MEDS ORDERED: PANTOPRAZOLE 40 MG INJ ONE (09:36)
[2019-12-02] MEDS ORDERED: CEFOXITIN/SWI 1gm 1 GM/10 ML SYR ONE (09:36)
[2019-12-02] MEDS: PANTOPRAZOLE 40 MG INJ IVP SCH (09:39)
[2019-12-02] MEDS: ENOXAPARIN 40 MG/0.4 ML SQ SCH (09:39)
[2019-12-02] MEDS: CEFOXITIN/SWI 1gm 1 GM/10 ML SYR IVP SCH ×3 (09:39→20:21)
[2019-12-02] MEDS ORDERED: HYDROMORPHONE HCL 2 MG/ML inj ONE ×2 (09:57→14:14)
--- NOTE | 2019-12-02 11:22 | PN ---
Date of Progress Note: 12/02/2019 Subjective: The patient is awake and alert. No complaint. Pain is controlled. Urine output is bor derline. Last night he was given a bolus and is doing much better this morning. Objective: VITAL SIGNS: Stable. He is afebrile. ABDOMEN: Benign, hypoactive bowel sounds. Laboratory Data: BUN is 22. Electrolytes are within normal limits. Assessment: Status post exploratory laparotomy, lysis of adhesion, reversal of colostomy. Recommendation: Continue present care with IV antibiotics. Encourage ambulation and incentive wendy metry. DVT prophylaxis. He is ambulating well, can be transferred to the regular floor. Continue t he NG tube and Flores for the time being. /MODL Voice ID: [id number] Report ID: [id number]
[2019-12-03] MEDS: METRONIDAZOLE 500mg IVPB 500 MG/100 ML BAG IV SCH ×3 (00:21→16:18)
[2019-12-03] MEDS: NACHLORIDE 0.45% 1,000 ML IV SCH ×5 (00:21→22:47)
[2019-12-03] MEDS: CEFOXITIN/SWI 1gm 1 GM/10 ML SYR IVP SCH ×4 (01:59→21:07)
[2019-12-03] MEDS: HYDROMORPHONE HCL 1 MG/ML INJ IV PRN ×10 (02:03→23:49)
[2019-12-03 05:32] LABS: Absolute Lymphocytes (CBC) 2.7 K/uL (0.7-4.9); Basophils % 0.6 % (0-1.3); Hematocrit 41.6 % (39.6-49.0); Lymphocytes % 15.5 % (15.3-44.8); MPV 9.6 fL (7.6-11.3); RBC Red Blood Cell Count 4.51 M/uL (4.33-5.43)
[2019-12-03 05:55] LABS: BUN Blood Urea Nitrogen 10 mg/dL (7-18); Bicarbonate 28 mmol/L (21-32); Glucose Level 113 mg/dL (74-106); Magnesium 1.8 mg/dL (1.8-2.4); Phosphorus 1.7 mg/dL (2.5-4.9); Potassium 4.5 mmol/L (3.5-5.1); Sodium Level 138 mmol/L (136-145)
[2019-12-03] MEDS ORDERED: MAGNESIUM SULFATE 1 gm IVPB 1 GM/100 ML BAG IV ONE (08:00)
[2019-12-03] MEDS ORDERED: POTASSIUM PHOS IN 0.9 % NACL 15 MMOL/250 ML BAG IV ONE (08:00)
[2019-12-03] MEDS: PANTOPRAZOLE 40 MG INJ IVP SCH (08:45)
[2019-12-03] MEDS: ENOXAPARIN 40 MG/0.4 ML SQ SCH ×2 (08:46→09:00)
[2019-12-03] MEDS: DULERA 100/5 (MOMETASONE/FORMOTEROL) INHALER IH SCH ×2 (08:46→21:08)
[2019-12-03] MEDS: NICOTINE 14 MG/PAT TD SCH (08:47)
--- NOTE | 2019-12-03 12:20 | PN ---
Date of Progress Note: 12/03/2019 Subjective: The patient is awake, alert. No complaint. Objective: Vital Signs: Stable. Afebrile. Abdomen: He states that he does have some rumbling in his stomach and minimal flatus, but no bowel m ovement. Abdomen is soft, still slightly distended, hypoactive bowel sounds. Extremities: Dressing is clean, dry, intact. Laboratory Data: Reviewed. White count is 17,000. Electrolytes are being checked and corrected socrates ropriately. Assessment: Status post reversal Juli procedure. Recommendations: Continue n.p.o., NG tube, IV fluid, IV antibiotic. Discontinue the Flores. Encoura ge ambulation. Deep vein thrombosis prophylaxis and incentive spirometry. The patient is clinically slowly improving. /MODL Voice ID: [id number] Report ID: [id number]
[2019-12-04] MEDS: METRONIDAZOLE 500mg IVPB 500 MG/100 ML BAG IV SCH ×3 (00:21→17:38)
[2019-12-04] MEDS: CEFOXITIN/SWI 1gm 1 GM/10 ML SYR IVP SCH ×4 (02:37→20:10)
[2019-12-04] MEDS: HYDROMORPHONE HCL 1 MG/ML INJ IV PRN ×9 (02:37→23:19)
[2019-12-04 04:26] LABS: Absolute Lymphocytes (CBC) 2.6 K/uL (0.7-4.9); Basophils % 0.4 % (0-1.3); Hematocrit 41.3 % (39.6-49.0); Lymphocytes % 16.8 % (15.3-44.8); MPV 9.4 fL (7.6-11.3); RBC Red Blood Cell Count 4.55 M/uL (4.33-5.43)
[2019-12-04 04:32] LABS: BUN Blood Urea Nitrogen 8 mg/dL (7-18); Bicarbonate 27 mmol/L (21-32); Glucose Level 91 mg/dL (74-106); Magnesium 1.8 mg/dL (1.8-2.4); Phosphorus 2.7 mg/dL (2.5-4.9); Potassium 4.4 mmol/L (3.5-5.1); Sodium Level 138 mmol/L (136-145)
[2019-12-04] MEDS: NACHLORIDE 0.45% 1,000 ML IV SCH ×2 (05:34→14:42)
[2019-12-04] MEDS ORDERED: MAGNESIUM SULFATE 1 gm IVPB 1 GM/100 ML BAG IV ONE (06:00)
[2019-12-04] MEDS: ENOXAPARIN 40 MG/0.4 ML SQ SCH (08:27)
[2019-12-04] MEDS: NICOTINE 14 MG/PAT TD SCH (08:27)
[2019-12-04] MEDS: DULERA 100/5 (MOMETASONE/FORMOTEROL) INHALER IH SCH ×2 (09:00→20:11)
[2019-12-04] MEDS: PANTOPRAZOLE 40 MG INJ IVP SCH (10:24)
--- NOTE | 2019-12-04 12:37 | PN ---
Date of Progress Note: 12/04/2019 Subjective: He is awake, alert, no complaints, is passing gas. No bowel movements. Objective: Vitals: Stable, afebrile. Abdomen: Soft, nondistended. Positive bowel sounds. Nontender. Laboratory Data: Reviewed. White count [id number]. Assessment: Status post reversal of colostomy. Recommendations: Clamp NG tube. Begin diet and clear liquids. Continue IV antibiotics. The patien t is clinically doing well. /MODL Voice ID: [id number] Report ID: [id number]
[2019-12-05] MEDS: METRONIDAZOLE 500mg IVPB 500 MG/100 ML BAG IV SCH ×3 (00:24→18:42)
[2019-12-05] MEDS: NACHLORIDE 0.45% 1,000 ML IV SCH ×3 (00:25→23:00)
[2019-12-05] MEDS: HYDROMORPHONE HCL 1 MG/ML INJ IV PRN ×8 (01:28→21:44)
[2019-12-05] MEDS: CEFOXITIN/SWI 1gm 1 GM/10 ML SYR IVP SCH ×4 (03:28→21:32)
[2019-12-05 04:27] LABS: Absolute Lymphocytes (CBC) 2.6 K/uL (0.7-4.9); Basophils % 0.5 % (0-1.3); Hematocrit 41.7 % (39.6-49.0); Lymphocytes % 20.5 % (15.3-44.8); MPV 9.2 fL (7.6-11.3); RBC Red Blood Cell Count 4.63 M/uL (4.33-5.43)
[2019-12-05 04:34] LABS: BUN Blood Urea Nitrogen 8 mg/dL (7-18); Bicarbonate 24 mmol/L (21-32); Glucose Level 86 mg/dL (74-106); Magnesium 1.7 mg/dL (1.8-2.4); Potassium 4.1 mmol/L (3.5-5.1); Sodium Level 139 mmol/L (136-145)
[2019-12-05] MEDS ORDERED: MAGNESIUM SULFATE 1 gm IVPB 1 GM/100 ML BAG IV ONE (06:26)
[2019-12-05] MEDS: ENOXAPARIN 40 MG/0.4 ML SQ SCH (07:58)
[2019-12-05] MEDS: PANTOPRAZOLE 40 MG INJ IVP SCH (07:58)
[2019-12-05] MEDS: NICOTINE 14 MG/PAT TD SCH (07:59)
[2019-12-05] MEDS: DULERA 100/5 (MOMETASONE/FORMOTEROL) INHALER IH SCH ×2 (09:00→21:00)
[2019-12-05] MEDS ORDERED: PHENOL 1.4% ORAL SPRAY 180ML MM PRN (10:34)
--- NOTE | 2019-12-05 15:01 | PN ---
Date of Progress Note: 12/05/2019 Subjective: The patient is awake, alert. No complaint. Passing gas. Had a bowel movement. Residu als were minimal. Objective: Vital Signs: Stable. Afebrile. Abdomen: Benign. Laboratory Data: White count is down to 12,000. Assessment: Status post reversal colostomy. Recommendations: We will advance diet, discontinue NG tube. The patient is clinically doing well. Continue present management. Hopefully discharge in 24-48 hours. /MODL Voice ID: [id number] Report ID: [id number]
[2019-12-06] MEDS: METRONIDAZOLE 500mg IVPB 500 MG/100 ML BAG IV SCH ×3 (00:11→15:54)
[2019-12-06] MEDS: NACHLORIDE 0.45% 1,000 ML IV SCH ×2 (00:25→07:00)
[2019-12-06] MEDS: HYDROMORPHONE HCL 1 MG/ML INJ IV PRN ×3 (01:14→09:14)
[2019-12-06] MEDS: CEFOXITIN/SWI 1gm 1 GM/10 ML SYR IVP SCH ×4 (03:37→20:50)
[2019-12-06 04:30] LABS: Absolute Lymphocytes (CBC) 2.4 K/uL (0.7-4.9); Basophils % 0.6 % (0-1.3); Hematocrit 43.1 % (39.6-49.0); Lymphocytes % 19.8 % (15.3-44.8); MPV 9.1 fL (7.6-11.3); RBC Red Blood Cell Count 4.77 M/uL (4.33-5.43)
[2019-12-06 04:39] LABS: BUN Blood Urea Nitrogen 9 mg/dL (7-18); Bicarbonate 25 mmol/L (21-32); Glucose Level 91 mg/dL (74-106); Magnesium 1.7 mg/dL (1.8-2.4); Sodium Level 139 mmol/L (136-145)
[2019-12-06] MEDS ORDERED: MAGNESIUM SULFATE 1 gm IVPB 1 GM/100 ML BAG IV ONE (06:13)
[2019-12-06] MEDS: ENOXAPARIN 40 MG/0.4 ML SQ SCH (08:54)
[2019-12-06] MEDS: PANTOPRAZOLE 40 MG INJ IVP SCH (08:54)
[2019-12-06] MEDS: NICOTINE 14 MG/PAT TD SCH (08:54)
[2019-12-06] MEDS: DULERA 100/5 (MOMETASONE/FORMOTEROL) INHALER IH SCH ×2 (08:54→20:50)
--- NOTE | 2019-12-06 11:06 | PN ---
Date of Progress Note: 12/06/2019 Subjective: The patient is awake alert. No complaints. He had a bowel movement. Objective: Vital Signs: Stable, afebrile. Abdomen: Benign with positive bowel sounds. Extremities: Wound is clean, dry, and intact. Laboratory Data: White count is down to 12.3. There is no left shift. Assessment: Status post reversal of colostomy. Recommendations: We would advance diet, discontinue IV fluids. Continue present care and likely dis charge in a.m. /MODL Voice ID: [id number] Report ID: [id number]
[2019-12-06] MEDS ORDERED: HYDROMORPHONE HCL 1 MG/ML INJ IV PRN (12:35)
[2019-12-06] MEDS: CODEINE 30MG/APAP 300MG TAB PO PRN ×3 (12:53→21:22)
[2019-12-07] MEDS: METRONIDAZOLE 500mg IVPB 500 MG/100 ML BAG IV SCH ×2 (00:02→08:42)
[2019-12-07] MEDS: CEFOXITIN/SWI 1gm 1 GM/10 ML SYR IVP SCH ×2 (03:20→08:43)
[2019-12-07 04:33] LABS: Absolute Lymphocytes (CBC) 2.3 K/uL (0.7-4.9); Basophils % 0.9 % (0-1.3); Hematocrit 43.5 % (39.6-49.0); MPV 9.3 fL (7.6-11.3); RBC Red Blood Cell Count 4.83 M/uL (4.33-5.43)
[2019-12-07 04:52] LABS: BUN Blood Urea Nitrogen 10 mg/dL (7-18); Bicarbonate 25 mmol/L (21-32); Glucose Level 107 mg/dL (74-106); Magnesium 1.8 mg/dL (1.8-2.4); Potassium 3.5 mmol/L (3.5-5.1); Sodium Level 142 mmol/L (136-145)
[2019-12-07] MEDS: CODEINE 30MG/APAP 300MG TAB PO PRN ×2 (05:26→11:12)
[2019-12-07] MEDS ORDERED: MAGNESIUM SULFATE 1 gm IVPB 1 GM/100 ML BAG IV ONE (06:00)
[2019-12-07 08:30] VITALS: O2SAT 94
[2019-12-07] MEDS: DULERA 100/5 (MOMETASONE/FORMOTEROL) INHALER IH SCH (08:42)
[2019-12-07] MEDS: ENOXAPARIN 40 MG/0.4 ML SQ SCH (08:43)
[2019-12-07] MEDS: PANTOPRAZOLE 40 MG INJ IVP SCH (08:44)
[2019-12-07] MEDS: NICOTINE 14 MG/PAT TD SCH (08:44)
[2019-12-07] MEDS ORDERED: POTASSIUM 25 MEQ EFFERV TAB PO ONE (09:00)
--- NOTE | 2019-12-07 10:43 | DS ---
Date of Discharge: 12/07/2019 Admitting Diagnosis: Status post Juli's procedure for perforated sigmoid diverticulitis. Discharge Diagnoses: 1.Status post Juli's procedure for perforated sigmoid diverticulitis. 2.Tachycardia. Hospital Course: The patient is a 39-year-old gentleman who underwent the aforementioned procedure o n last Wednesday. Did well. Was in the ICU. Transferred to the floor the next day, and his bowel func tion improved. He was maintained on antibiotics for leukocytosis, which has improved and almost norm alized. Today, he is tolerating diet, ambulating, pain control, p.o. pain medication, afebrile but h owever he had 1 episode of severe tachycardia with heart rate into the 170s and he is getting a cardi ac evaluation. He is completely asymptomatic. May have been transient. Once he is cleared by Cardi ology, I will discharge him to home. Disposition: Home. Condition: Stable. Discharge Instructions: Resume home medications and diet. Activity as tolerated. No heavy lifting. Remove outer dressing in a.m. Shower. Keep the wound clean and dry. Discontinue other staple. F ollowup in my office in a week. Call for appointment. SUSAN/SUSANNE Voice ID: [id number] Report ID: [id number]
[2019-12-07 12:05] VITALS: BP 166/79; TEMP 97
--- NOTE | 2019-12-07 14:40 | CON ---
Date of Consultation: 12/07/2019 Reason For Consultation: High heart rate. History Of Present Illness: This is a 39-year-old male, who was admitted for a colostomy bag reversa l which he had and he was about to be discharged today when he had a run of tachycardia, heart rate a round 170 for about 2 minutes, and then went back to sinus rhythm. The patient denied having any sym ptoms with it. Denies having any cardiac problems. No chest pain or shortness of breath. No other complaints. Past Medical History: No history of cardiac disease. Medications: Refer to reconciliation sheet for detailed list. Allergies: NO KNOWN DRUG ALLERGIES. Social History: Does not smoke or drink. Does not use any drugs. Review of Systems: All systems reviewed and they were negative except what mentioned in the HPI. Physical Examination: Vital Signs: Reviewed. Head and Neck: Pupils are equal, react to light. Intact eye movements. No JVD. No cervical lympha denopathy. Neck: Supple. Thyroid is not enlarged. Lungs: Clear to auscultation bilaterally. No rhonchi, rales, or crackles. No accessory muscle use. Heart: Regular rate and rhythm. No extra sounds. Abdomen: Soft, nontender. Bowel sounds positive. No organomegaly. No masses or hernia. No rigidi ty or rebound. Extremities: No edema, clubbing, or cyanosis. Intact pulses. Skin: No rash noted. Neurologic: Alert, awake, oriented x3. No acute focal deficits appreciated. Investigations: The telemetry records were reviewed. The patient had a short run of paroxysmal atri al fibrillation and self-terminated. Assessment And Plan: Paroxysmal atrial fibrillation, self-terminated and back in sinus right now. Margaret elmore that there are no significant risk factors, we will follow the patient as an outpatient. We gerald l obtain an echo in the office and I will have him wear a monitor for 7 days at the office and if has recurrence, we will plan a treatment at this point. It is okay from the cardiac standpoint to be di scharged home. /CATERINAL Voice ID: [id number] Report ID: [id number]
== END 2019-12-07 14:16 | disposition home or self-care (01) | DRG 346 ==
LOC: OR 07:36 → ERHOLD 14:04 → 2ND 12-02 15:37
PROVIDERS: ADMIT Surgery; ATTEND Surgery
PROC: 0JN80ZZ Release Abdomen Subcutaneous Tissue and Fascia, Open Approach (ICD-10-PCS; 2019-12-01)
PROC: 0JNC0ZZ Release Pelvic Region Subcutaneous Tissue and Fascia, Open Approach (ICD-10-PCS; 2019-12-01)
PROC: 0DSN0ZZ Reposition Sigmoid Colon, Open Approach (ICD-10-PCS; 2019-12-01)
PROC: 0DSN0ZZ Reposition Sigmoid Colon, Open Approach (ICD-10-PCS; principal; 2019-12-01 10:00)
DX: Z43.3 Encounter for attention to colostomy (principal); D72.829 Elevated white blood cell count, unspecified; R00.0 Tachycardia, unspecified; I48.0 Paroxysmal atrial fibrillation; Z20.828 Contact with and (suspected) exposure to other viral communicable diseases
CPT/HCPCS: 36415; 80048; 83735; 84100; 85025; 88304; 94010; 97161; C9113; J0694; J1100; J1170; J1650; J2250; J2405; J2550; J2704; J2710; J3010; J3475; J7040; J7120; J7606; U0002